=== PATIENT | male | born 1965 | race Caucasian/White ===

== ENCOUNTER → 2019-02-27 | Outpatient (CLI) | payer MEDICARE, MEDICAID ==
[2019-02-27 15:49] LABS: Basophils # (auto) 0 uL; Basophils % (auto) 0.7 % (0.0-2.0); Eosinophils # (auto) 0.1 uL; Hematocrit 43.4 % (41.0-53.0); Hemoglobin 14.1 g/dL (13.5-17.5); Lymphocytes # (auto) 1.7 uL; Lymphocytes % (auto) 32.8 % (10.0-50.0); Mean Corpuscular Hemoglobin 29.2 pg (28.0-32.0); Mean Corpuscular Hgb Conc. 32.5 g/dL (32.0-36.0); Mean Corpuscular Volume 89.7 fL (80.0-100.0); Monocytes # (auto) 0.6 uL; Monocytes % (auto) 11.8 % (0.0-12.0); Neutrophils # (auto) 2.8 uL; Neutrophils % (auto) 53.7 % (37.0-80.0); Nucleated Red Blood Cells % 0.5 %; Platelet Count (auto) 286 10^3/uL (140-450); Red Blood Cells 4.84 10^6/uL (4.5-5.90); Red Cell Distribution Width 13.4 % (11.8-14.3); White Blood Cell 5.1 10^3/uL (4.4-10.8)
[2019-02-27 16:00] LABS: Albumin 3.1 g/dL (3.4-5.0); Calcium 8.5 mg/dL (8.5-10.1); Potassium 4.3 mmol/L (3.5-5.1)
[2019-02-27 16:07] LABS: BUN/Creatinine Ratio 25.7; Bilirubin, Direct 0.1 mg/dL (0-0.2); Bilirubin, Total 0.5 mg/dL (0.2-1.0); Total Protein 6.6 g/dL (6.4-8.2)
[2019-02-28 09:31] LABS: Hepatitis B Surface Antibody Positive
[2019-02-28 10:04] LABS: Hepatitis A Total Antibody Negative
[2019-02-28 10:26] LABS: Hepatitis B Surface Antigen Negative (Negative); Hepatitis C Antibody Negative (Negative)
[2019-02-28 14:09] LABS: Hepatitis B Core Total AB Positive
== END | disposition home or self-care (01) ==
LOC: LAB 11:37
PROVIDERS: ATTEND Internal Medicine Cardiovascular Disease
DX: K74.1 Hepatic sclerosis (principal); B20 Human immunodeficiency virus [HIV] disease; E29.1 Testicular hypofunction; E03.9 Hypothyroidism, unspecified; Z79.899 Other long term (current) drug therapy; Z20.5 Contact with and (suspected) exposure to viral hepatitis; Z11.59 Encounter for screening for other viral diseases
CPT/HCPCS: 36415; 80048; 80061; 80076; 82306; 83036; 84153; 84403; 84443; 85025; 86592; 86703; 86704; 86706; 86708; 86803; 87340

== ENCOUNTER → 2019-03-05 | Outpatient (CLI) | payer MEDICARE, MEDICAID | END | disposition home or self-care (01) | LOC: Rad HDHVI 15:18 | PROVIDERS: ATTEND Internal Medicine Cardiovascular Disease | DX: I08.1 Rheumatic disorders of both mitral and tricuspid valves (principal); I27.21 Secondary pulmonary arterial hypertension | CPT/HCPCS: 93306 ==

== ENCOUNTER → 2019-04-29 | Outpatient (CLI) | payer MEDICARE, MEDICAID ==
[~2019-04-29] MED LIST: CARV6.25 PO; ENAL2.5T PO; LORA2TAB89 PO; ROSU5TAB5 PO; TOPI50TA32 PO
[2019-04-29 14:16] VITALS: BP 113/86
[2019-04-29 14:27] VITALS: BP 112/82
--- NOTE | 2019-04-29 14:27 | NUR ---
Pre-Op Discharge Summary: See e-MAR for any medications given for this visit. Pre-op orders received and carried out per MD of EKG, LABS and chest xrays. Patient given a copy of EKG with instructions to go to [facility] out patient for further follow up care.
[2019-04-29 16:02] LABS: Basophils # (auto) 0 uL; Basophils % (auto) 0.4 % (0.0-2.0); Eosinophils # (auto) 0.1 uL; Eosinophils % (auto) 1.7 % (0.0-7.0); Hematocrit 44.9 % (41.0-53.0); Hemoglobin 14.7 g/dL (13.5-17.5); Lymphocytes # (auto) 1.9 uL; Lymphocytes % (auto) 31.4 % (10.0-50.0); Mean Corpuscular Hemoglobin 29.5 pg (28.0-32.0); Mean Corpuscular Hgb Conc. 32.8 g/dL (32.0-36.0); Mean Corpuscular Volume 90.1 fL (80.0-100.0); Monocytes # (auto) 0.7 uL; Monocytes % (auto) 11.6 % (0.0-12.0); Neutrophils # (auto) 3.3 uL; Neutrophils % (auto) 54.9 % (37.0-80.0); Platelet Count (auto) 204 10^3/uL (140-450); Red Blood Cells 4.98 10^6/uL (4.5-5.90); Red Cell Distribution Width 14.5 % (11.8-14.3)
[2019-04-29 16:08] LABS: BUN/Creatinine Ratio 23.3; Calcium 8.8 mg/dL (8.5-10.1); Potassium 3.7 mmol/L (3.5-5.1)
[2019-04-29 16:17] LABS: INR 1.02 (0.9-1.15)
== END | disposition home or self-care (01) ==
LOC: Rad HDHVI 14:02
PROVIDERS: ATTEND Internal Medicine Cardiovascular Disease
DX: Z01.812 Encounter for preprocedural laboratory examination (principal); D64.9 Anemia, unspecified; R79.1 Abnormal coagulation profile; I11.0 Hypertensive heart disease with heart failure; I50.9 Heart failure, unspecified; I27.21 Secondary pulmonary arterial hypertension; I42.0 Dilated cardiomyopathy; R94.31 Abnormal electrocardiogram [ECG] [EKG]
CPT/HCPCS: 36415; 71046; 80048; 85025; 85610; 85730; 93005; G0463

== ENCOUNTER 2019-04-30 11:28 | Day surgery (SDC) | payer MEDICARE, MEDICAID ==
[~2019-04-30] VITALS: Ht 172.7 cm; Wt 75.7 kg
[2019-04-30] MEDS ORDERED: LIDOCAINE 2%HCL (LOCAL ANESTH.) INJ 20ML MDV ONE (12:02)
[2019-04-30] MEDS ORDERED: fentaNYL CITRATE 100 MCG/2 ML VL ONE (12:33)
[2019-04-30] MEDS ORDERED: ANGIOMAX 250 MG VIAL IV ONE (12:33)
[2019-04-30] MEDS ORDERED: MIDAZOLAM HCL 1MG/1ML-2 ML VIAL ONE (12:33)
[2019-04-30] MEDS ORDERED: SODIUM CHL 0.9% 0 ML ONE (12:34)
[2019-04-30] MEDS ORDERED: IODIXANOL 320MG/ML 100ML BTL IV ONE ×2 (12:34→14:25)
== END 2019-04-30 16:58 | disposition home or self-care (01) ==
LOC: CATH 11:28
PROVIDERS: ATTEND Internal Medicine Cardiovascular Disease
DX: I42.0 Dilated cardiomyopathy (principal); I27.29 Other secondary pulmonary hypertension; I11.0 Hypertensive heart disease with heart failure; I50.1 Left ventricular failure, unspecified; E78.00 Pure hypercholesterolemia, unspecified; F17.210 Nicotine dependence, cigarettes, uncomplicated; E78.5 Hyperlipidemia, unspecified; F12.90 Cannabis use, unspecified, uncomplicated; Z79.899 Other long term (current) drug therapy; Z88.5 Allergy status to narcotic agent; Z88.8 Allergy status to other drugs, medicaments and biological substances
CPT/HCPCS: 93460; C1760; C1894; J1644; J2250; J3010; J7030; Q9967; 99152

== ENCOUNTER 2023-08-23 07:12 | Day surgery (SDC) | payer MEDICARE, MEDICAID ==
[~2023-08-23 07:12] MED LIST changes: -ENAL2.5T PO; +FURO1TAB31 PO; +POTA1TAB61 PO; -ROSU5TAB5 PO; +SACU1TAB7 PO
[2023-08-23] MEDS ORDERED: IODIXANOL 320MG/ML 100ML BTL IV ONE (07:26)
[2023-08-23] MEDS ORDERED: LIDOCAINE 2%HCL (LOCAL ANESTH.) INJ 20ML MDV ONE (07:26)
[2023-08-23] MEDS ORDERED: VERAPAMIL 2.5MG/ML INJ 2ML VIAL IV ONE (07:57)
[2023-08-23] MEDS ORDERED: ANGIOMAX 250 MG VIAL IV ONE (07:57)
[2023-08-23] MEDS ORDERED: MIDAZOLAM HCL 2MG/2ML 2ml VIAL (1mg/ml) ONE (07:57)
[2023-08-23] MEDS ORDERED: SODIUM CHL 0.9% 0 ML ONE (07:57)
[2023-08-23] MEDS ORDERED: fentaNYL CITRATE 100 MCG/2 ML VL ONE (07:57)
[2023-08-23] MEDS ORDERED: HEPARIN SODIUM (PORCINE) 5000 UNITS/ML 1ML VIAL ONE (07:57)
[2023-08-23 08:43] VITALS: BP 116/82; PULSE 68; RESP 16; TEMP 98.2; O2SAT 95
[2023-08-23 08:57] VITALS: BP 112/83; PULSE 67; RESP 18; O2SAT 96
[2023-08-23] MEDS ORDERED: IVAB1TAB2 PO (09:07)
[2023-08-23] MEDS ORDERED: CAR125T PO (09:07)
[2023-08-23 09:13] VITALS: BP 117/85; PULSE 67; RESP 20; O2SAT 97
[2023-08-23] MEDS ORDERED: SILD20TA2 PO (09:13)
[2023-08-23] MEDS ORDERED: TOPI100T68 PO (09:13)
[2023-08-23] MEDS ORDERED: DIGO0.12 PO (09:13)
[2023-08-23] MEDS ORDERED: SACU1TAB PO (09:23)
[2023-08-23] MEDS ORDERED: FUR20T PO (09:23)
[2023-08-23] MEDS ORDERED: SOTA80TA PO (09:27)
[2023-08-23] MEDS ORDERED: FLUT1AER3 IN (09:27)
[2023-08-23] MEDS ORDERED: VERI2.5T PO (09:27)
[2023-08-23] MEDS ORDERED: ROSU10TA16 PO (09:27)
[2023-08-23 09:30] VITALS: BP 110/81; PULSE 68; RESP 17; O2SAT 96
[2023-08-23 09:59] VITALS: BP 112/73; PULSE 67; RESP 16; O2SAT 99
[2023-08-23 10:25] VITALS: BP 114/82; PULSE 67; RESP 17; O2SAT 97
== END 2023-08-23 10:55 | disposition home or self-care (01) ==
LOC: CATH 07:12
PROVIDERS: ATTEND Internal Medicine Cardiovascular Disease
DX: R06.02 Shortness of breath (principal); I11.0 Hypertensive heart disease with heart failure; I50.20 Unspecified systolic (congestive) heart failure; F17.210 Nicotine dependence, cigarettes, uncomplicated; I27.20 Pulmonary hypertension, unspecified; E78.5 Hyperlipidemia, unspecified; I73.9 Peripheral vascular disease, unspecified; Z79.899 Other long term (current) drug therapy; Z98.890 Other specified postprocedural states
CPT/HCPCS: 93458; C1725; C1894; J1644; J2250; J3010; J7030; Q9967; 99152

== ENCOUNTER 2025-03-24 16:12 | Emergency (ER) | payer MEDICARE, MEDICAID ==
[~2025-03-24] VITALS: Ht 172.7 cm; Wt 81.6 kg
[~2025-03-24 16:12] MED LIST changes: +CARV-216 PO; -CARV6.25 PO; +DIGO0.12 PO; +FLUT1AER3 IN; -FURO1TAB31 PO; +FURO20TA4 PO; +IVAB1TAB2 PO; -LORA2TAB89 PO; +POTA-215 PO; -POTA1TAB61 PO; +ROSU10TA16 PO; +SACU1TAB PO; -SACU1TAB7 PO; +SILD20TA41 PO; +SOTA80TA PO; +TOPI100T68 PO; -TOPI50TA32 PO; +VERI2.5T PO
[2025-03-24 16:33] VITALS: BP 80/48; PULSE 76; RESP 18; TEMP 99.1; O2SAT 95
--- NOTE | 2025-03-24 16:56 | ED.PDOC ---
History of Present Illness HPI Comments 60-year-old male came in because of his surgical wound site leaking fluid for the past few days. He had surgery done at [facility] for left inguinal hernia a week ago. Surgery was last Monday was discharged on Monday night. Patient states that he has been having fluid leaking from the surgical site increasing in size with more warm and redness. History of pacemaker with a ejection fraction of 16%. Denies chest pain shortness a breath. Denies any other symptoms. Time Seen by MD: 16:19 Reviewed Notes: Nurses Notes, Medications, Allergies Allergies: Coded Allergies: Codeine (Verified Allergy, Unknown, 08/21/23) Ethanol (Verified Allergy, Unknown, 08/21/23) Promethazine (Verified Allergy, Unknown, 08/21/23) Home Meds Reported Medications Vericiguat (Verquvo) 2.5 Mg Tab, 1 TAB PO DAILY for HEART FAILURE 08/23/23 Fkoarwktxrr-Jeadjpjxfkie-Inrun (Trelegy Ellipta 100-62.5-25 Mcg/INH) 1 Aer Aer, 1 PUFF IN DAILY for COPD 08/23/23 Rosuvastatin Calcium (Crestor) 10 Mg Tab, 1 TAB PO DAILY for HIGH CHOLESTEROL 08/23/23 Sotalol Hcl (Sotalol Hcl) 80 Mg Tab, 0.5 TAB PO BID for ARRYTHMIA 08/23/23 Furosemide (Furosemide) 20 Mg Tab, 1 TAB PO for HEART FAILURE 08/23/23 Sacubitril-Valsartan (Entresto 24-26 mg) 1 Tab Tab, 1 TAB PO BID for HEART FAILURE 08/23/23 Digoxin (Digoxin) 125 Mcg Tab, 1 TAB PO DAILY for ARRYTHMIA 08/23/23 Sildenafil Citrate (Sildenafil Citrate) 20 Mg Tab, 1 TAB PO TID for PULMONARY HYPERTENSION 08/23/23 Topiramate (Topiramate) 100 Mg Tab, 1 TAB PO QPM for SEIZURES 08/23/23 Ivabradine Hydrochloride (Corlanor) 7.5 Mg Tab, 1 TAB PO BID for HEART FAILURE 08/23/23 Carvedilol (COREG) 12.5 Mg Tab, 1 TAB PO BID for HYPERTENSION 08/23/23 Potassium Chloride (Klor-Con M10) 10 Meq Tab, 1 TAB PO DAILY for SUPPLEMENT 08/21/23 Information Source: Patient Mode of Arrival: Wheelchair Severity: Moderate Timing: Days Duration: Since onset Past Medical History PAST MEDICAL HISTORY: Denies Surgical History: Denies all surgeries Social History Smoker: Non-Smoker Alcohol: Denies ETOH Use Drugs: Denies Drug Use Constitutional: denies: chills, diaphoresis, fatigue, fever, malaise, sweats, weakness, others EENTM: denies: blurred vision, double vision, ear bleeding, ear discharge, ear drainage, ear pain, ear ringing, eye pain, eye redness, hearing loss, mouth pain, mouth swelling, nasal discharge, nose bleeding, nose congestion, nose pain, photophobia, tearing, throat pain, throat swelling, voice changes, others Respiratory: denies: cough, hemoptysis, orthopnea, SOB at rest, shortness of breath, SOB with excertion, stridor, wheezing, others Cardiovascular: denies: chest pain, dizzy spells, diaphoresis, Dyspnea on exertion, edema, irregular heart beat, left arm pain, lightheadedness, palpitations, PND, syncope, others Gastrointestinal: denies: abdomen distended, abdominal pain, blood streaked bowels, constipated, diarrhea, dysphagia, difficulty swallowing, hematemesis, melena, nausea, poor appetite, poor fluid intake, rectal bleeding, rectal pain, vomiting, others Genitourinary: denies: burning, dysuria, flank pain, frequency, hematuria, incontinence, penile discharge, penile sore, pain, testicle pain, testicle swelling, urgency, others Neurological: denies: dizziness, fainting, headache, left sided numbness, left sided weakness, numbness, paresthesia, pre-existing deficit, right sided numbness, right sided weakness, seizure, speech problems, tingling, tremors, weakness, others Musculoskeletal: denies: back pain, gout, joint pain, joint swelling, muscle pain, muscle stiffness, neck pain, others Integumetry: reports: lesions (Surgical left inguinal); denies: bruises, change in color, change in hair/nails, dryness, laceration, lumps, rash, wounds, others Allergic/Immunocompromised: denies: Difficulty Healing, Frequent Infections, Hives, Itching, others Hematologic/Lymphatic: denies: anemia, blood clots, easy bleeding, easy bruising, swollen glands, others Endocrine: denies: excessive hunger, excessive sweating, excessive thirst, excessive urination, flushing, intolerance to cold, intolerance to heat, unexplained weight gain, unexplained weight loss, others Psychiatric: denies: anxiety, bipolar disorder, depression, hopeless, panic disorder, schizophrenia, sleepless, suicidal, others Physical Exam General Appearance: Moderate Distress HEENT: Normal ENT Inspection, Pharynx Normal, TMs Normal Neck: Full Range of Motion, Non-Tender, Normal, Normal Inspection Respiratory: Chest Non-Tender, Lungs Clear, No Accessory Muscle Use, No Respiratory Distress, Normal Breath Sounds Cardiovascular: No Edema, No JVD, No Murmur, No Gallop, Normal Peripheral Pulses, Regular Rate/Rhythm Breast Exam: Deferred Gastrointestinal: No Organomegaly, Non Tender, No Pulsatile Mass, Normal Bowel Sounds, Soft Genitalia: Deferred Pelvic: Deferred Rectal: Deferred Extremities: No calf tenderness, Normal inspection, Normal range of motion, No pedal edema Musculoskeletal : Apperance: Normal Neurologic: Alert, No Motor Deficits, No Sensory Deficits Cerebellar Function: NOT DONE Reflexes: NOT DONE Skin: Normal Color, Wounds (Surgical left inguinal) Peripheral Pulses: 3+ Radial (R), 3+ Radial (L) Lymphatic: No Adenopathy Was a procedure done? Was a procedure done?: No Differential Dx Considerations may include: Cellulitis Electrolyte imbalance X-Ray, Labs, Meds, VS Patient alert. Complaining of leaking of serous fluid from surgical site. Had inguinal hernia repair at [facility]. Vitals stable. Answering questions. Blood pressure slightly low. Explained to the patient that he will need fluids along with antibiotics. He will need surgical site to be opened and drained possibly with wound VAC. Explained to the patient. Insists on driving himself to [facility]. Signed against medical advice. Explained to the significant other that the dangers of him not being treated could be fatal. They insisted on driving to [facility]. Time of 1ST Reevaluation: 16:53 Reevaluation 1ST: Unchanged Patient Education/Counseling: Diagnosis, Treatment, Prognosis, Need For Follow Up Family Education/Counseling: No Family Present Departure 1 Departure Time of Disposition: 16:55 Impression: Primary Impression: Cellulitis Qualified Codes: L03.818 - Cellulitis of other sites Disposition: LEFT AGAINST MEDICAL ADVICE Condition: Good Discharged With: Self Critical Care Note Critical Care Time?: No Stability Stability form required: No Heart Score Heart Score: Heart Score Response (Comments) Value History N/A 0 EKG N/A 0 Age N/A 0 Risk Factors N/A 0 Troponin N/A 0 Total 0 RITA SANDOVAL MD Mar 24, 2025 16:55
== END 2025-03-24 17:15 | disposition left against medical advice (07) ==
LOC: ER 16:12
DX: L03.314 Cellulitis of groin (principal); Z95.0 Presence of cardiac pacemaker; Z88.5 Allergy status to narcotic agent; Z79.899 Other long term (current) drug therapy; Z88.1 Allergy status to other antibiotic agents

== ENCOUNTER 2025-06-07 08:23 | Inpatient (IN) | payer MEDICARE, MEDICAID ==
[~2025-06-07] VITALS: Ht 172.7 cm; Wt 86.1 kg
[2025-06-07 08:29] VITALS: PULSE 67; RESP 11; O2SAT 92
--- NOTE | 2025-06-07 08:48 | ED.PDOC ---
History of Present Illness HPI Comments 60-year-old male presents to the ER with prior medical history of CHF, AFib: Surgical history of pacemaker and a chief complaint of chest pain. Patient reports on having chest pain(unknown location), nausea, dizziness, weakness all since this morning and has been worsening since. Denies chills, fever, /V/D, SOB. No other associated symptoms, modifiers, recent injuries or sick contacts present at this time. Chief Complaint: Chest Pain Time Seen by MD: 08:45 Primary Care Provider: ASHLEY CARPENTER Reviewed Notes: Nurses Notes, Medications, Allergies Allergies: Coded Allergies: Codeine (Verified Allergy, Unknown, 08/21/23) Ethanol (Verified Allergy, Unknown, 08/21/23) Promethazine (Verified Allergy, Unknown, 08/21/23) Home Meds Reported Medications Vericiguat (Verquvo) 2.5 Mg Tab, 1 TAB PO DAILY for HEART FAILURE 08/23/23 Rkndkkzestv-Qfhxqbnmrtjo-Natpo (Trelegy Ellipta 100-62.5-25 Mcg/INH) 1 Aer Aer, 1 PUFF IN DAILY for COPD 08/23/23 Rosuvastatin Calcium (Crestor) 10 Mg Tab, 1 TAB PO DAILY for HIGH CHOLESTEROL 08/23/23 Sotalol Hcl (Sotalol Hcl) 80 Mg Tab, 0.5 TAB PO BID for ARRYTHMIA 08/23/23 Furosemide (Furosemide) 20 Mg Tab, 1 TAB PO for HEART FAILURE 08/23/23 Sacubitril-Valsartan (Entresto 24-26 mg) 1 Tab Tab, 1 TAB PO BID for HEART FAILURE 08/23/23 Digoxin (Digoxin) 125 Mcg Tab, 1 TAB PO DAILY for ARRYTHMIA 08/23/23 Sildenafil Citrate (Sildenafil Citrate) 20 Mg Tab, 1 TAB PO TID for PULMONARY HYPERTENSION 08/23/23 Topiramate (Topiramate) 100 Mg Tab, 1 TAB PO QPM for SEIZURES 08/23/23 Ivabradine Hydrochloride (Corlanor) 7.5 Mg Tab, 1 TAB PO BID for HEART FAILURE 08/23/23 Carvedilol (COREG) 12.5 Mg Tab, 1 TAB PO BID for HYPERTENSION 08/23/23 Potassium Chloride (Klor-Con M10) 10 Meq Tab, 1 TAB PO DAILY for SUPPLEMENT 11/20/23 Information Source: Patient Mode of Arrival: Ambulatory Severity: Moderate Timing: Hours Duration: Since onset, Hours Prehospital treatment: None Past Medical History PAST MEDICAL HISTORY: AFIB, CHF Surgical History: Pacemaker Family History Family History: Reviewed,noncontributory to illness, Unknown Social History Smoker: Non-Smoker Alcohol: Denies ETOH Use Drugs: Denies Drug Use Lives In: Home Constitutional: reports: weakness; denies: chills, diaphoresis, fatigue, fever, malaise, sweats, others EENTM: denies: blurred vision, double vision, ear bleeding, ear discharge, ear drainage, ear pain, ear ringing, eye pain, eye redness, hearing loss, mouth pain, mouth swelling, nasal discharge, nose bleeding, nose congestion, nose pain, photophobia, tearing, throat pain, throat swelling, voice changes, others Respiratory: denies: cough, hemoptysis, orthopnea, SOB at rest, shortness of breath, SOB with excertion, stridor, wheezing, others Cardiovascular: reports: chest pain; denies: dizzy spells, diaphoresis, Dyspnea on exertion, edema, irregular heart beat, left arm pain, lightheadedness, palpitations, PND, syncope, others Gastrointestinal: reports: nausea; denies: abdomen distended, abdominal pain, blood streaked bowels, constipated, diarrhea, dysphagia, difficulty swallowing, hematemesis, melena, poor appetite, poor fluid intake, rectal bleeding, rectal pain, vomiting, others Genitourinary: denies: burning, dysuria, flank pain, frequency, hematuria, incontinence, penile discharge, penile sore, pain, testicle pain, testicle swelling, urgency, others Neurological: reports: dizziness; denies: fainting, headache, left sided numbness, left sided weakness, numbness, paresthesia, pre-existing deficit, right sided numbness, right sided weakness, seizure, speech problems, tingling, tremors, weakness, others Musculoskeletal: denies: back pain, gout, joint pain, joint swelling, muscle pain, muscle stiffness, neck pain, others Integumetry: denies: bruises, change in color, change in hair/nails, dryness, laceration, lesions, lumps, rash, wounds, others Allergic/Immunocompromised: denies: Difficulty Healing, Frequent Infections, Hives, Itching, others Hematologic/Lymphatic: denies: anemia, blood clots, easy bleeding, easy bruisi ng, swollen glands, others Endocrine: denies: excessive hunger, excessive sweating, excessive thirst, exce ssive urination, flushing, intolerance to cold, intolerance to heat, unexplained weight gain, unexplained weight loss, others Psychiatric: denies: anxiety, bipolar disorder, depression, hopeless, panic disorder, schizophrenia, sleepless, suicidal, others All Other Systems: Reviewed and Negative Physical Exam General Appearance: Moderate Distress, Normal HEENT: Normal ENT Inspection, Pharynx Normal, TMs Normal Neck: Full Range of Motion, Non-Tender, Normal, Normal Inspection Respiratory: Chest Non-Tender, Lungs Clear, No Accessory Muscle Use, No Respiratory Distress, Normal Breath Sounds Cardiovascular: Irregular, No Edema, No JVD, No Murmur, No Gallop, Normal Peripheral Pulses, Tachycardia Breast Exam: Deferred Gastrointestinal: No Organomegaly, Non Tender, No Pulsatile Mass, Normal Bowel Sounds, Soft Genitalia: Deferred Pelvic: Deferred Rectal: Deferred Extremities: No calf tenderness, Normal capillary refill, Normal inspection, Normal range of motion, Non-tender, No pedal edema Musculoskeletal : Apperance: Normal Neurologic: Alert, district medical examiner II-XII nml as Tested, No Motor Deficits, Normal Affect, Normal Mood, No Sensory Deficits Cerebellar Function: NOT DONE Reflexes: NOT DONE Skin: Dry, Normal Color, Warm Peripheral Pulses: 3+ Radial (R), 3+ Radial (L) Lymphatic: No Adenopathy Was a procedure done? Was a procedure done?: No Differential Dx Considerations may include: Anemia Electrolyte imbalance X-Ray, Labs, Meds, VS Vital Signs Date Time Temp Pulse Resp B/P (MAP) Pulse Ox O2 Delivery O2 Flow Rate FiO2 06/07/25 10:49 63/39 06/07/25 08:44 97.0 114 20 54/32 100 97.0 06/07/25 08:29 98.0 66 11 96/51 (66) 92 98.0 06/07/25 08:29 67 11 92 Nasal Cannula* 2 28 06/07/25 08:28 132 Lab Test 06/07/25 11:14 06/07/25 08:49 Range/Units Troponin I High Sensitivity 581 *H 546 *H </=54 ng/L White Blood Count 11.6 H 4.4-10.8 10^3/uL Red Blood Count 5.39 4.5-5.90 10^6/uL Hemoglobin 16.3 13.5-17.5 g/dL Hematocrit 49.0 41.0-53.0 % Mean Corpuscular Volume 90.9 80.0-100.0 fL Mean Corpuscular Hemoglobin 30.3 28.0-32.0 pg Mean Corpuscular Hemoglobin Concent 33.3 32.0-36.0 g/dL Red Cell Distribution Width 16.9 H 11.8-14.3 % Platelet Count 282 140-450 10^3/uL Mean Platelet Volume 6.8 L 6.9-10.8 fL Neutrophils (%) (Auto) 69.2 37.0-80.0 % Lymphocytes (%) (Auto) 19.3 10.0-50.0 % Monocytes (%) (Auto) 10.1 0.0-12.0 % Eosinophils (%) (Auto) 1.0 0.0-7.0 % Basophils (%) (Auto) 0.4 0.0-2.0 % Neutrophils # (Auto) 8.0 1.6-8.6 10 ^3/uL Lymphocytes # (Auto) 2.2 0.4-5.4 10 ^3/uL Monocytes # (Auto) 1.2 0-1.3 10 ^3/uL Eosinophils # (Auto) 0.1 0-0.8 10 ^3/uL Basophils # (Auto) 0 0-0.2 10 ^3/uL Nucleated Red Blood Cells 0.0 % Sodium Level 136 136-145 mmol/L Potassium Level 3.2 L 3.5-5.1 mmol/L Chloride Level 98 98-107 mmol/L Carbon Dioxide Level 22 20-31 mmol/L Anion Gap 16 H 5-15 Blood Urea Nitrogen 22 9-23 mg/dL Creatinine 2.58 H 0.700-1.30 mg/dL Glomerular Filtration Rate Calc 27 >90 mL/min BUN/Creatinine Ratio 8.5 L 10.0-20.0 Serum Glucose 101 74-106 mg/dL Calcium Level 9.5 8.7-10.4 mg/dL Total Bilirubin 0.9 0.2-1.0 mg/dL Aspartate Amino Transferase (AST) 26 13-40 U/L Alanine Aminotransferase (ALT) 20 7-40 U/L Alkaline Phosphatase 73 46-116 U/L Total Protein 8.0 5.7-8.2 g/dL Albumin 4.4 3.2-4.8 g/dL Current Medications Medications (Trade) Dose Ordered Sig/Yoni Route Start Time Stop Time Status Last Admin Sodium Chloride 1,000 ml @ 1,000 mls/hr Q1H ONCE IV 06/07/25 08:45 06/07/25 09:44 DC 06/07/25 08:56 Norepinephrine Bitartrate 250 ml @ 3.75 mls/hr Q24H IV 06/07/25 10:15 06/07/25 10:49 Enoxaparin Sodium (Lovenox) 80 mg ONCE ONCE SC 06/07/25 10:15 06/07/25 10:21 DC 06/07/25 10:51 Ondansetron HCl (Zofran) 4 mg ONCE ONCE IV 06/07/25 11:15 06/07/25 12:46 DC 06/07/25 11:30 Acetaminophen/ Hydrocodone Bitart (Clarkia 10/325MG Tab) 1 tab ONCE ONCE PO 06/07/25 12:15 06/07/25 12:46 DC 06/07/25 12:21 Patient alert. Complaining of shortness a breath. He was hyperventilating when he came in. Heart rate fluctuating. Irregular pain Blood pressure low. Establish intravenous access. Was given fluids. Started Levophed. Cardiac marker elevated. Was given Lovenox. Demand ischemia. EKG does show old changes. Counseled patient on effects of methamphetamine. Drug induced ischemia. Explained to the patient. Continue monitoring. [place] [id number] Ph: [phone] DIAGNOSTIC IMAGING Diagnostic Imaging Report : [id number] Signed PATIENT: MONIQUE COPE ACCT: [id number] UNIT: [id number] : 1965 LOC: ER ROOM / BED: / AGE / SEX: 60 / M ADM STATUS: REG ER SERVICE [id number] ORDERING PHYSICIAN: RITA SANDOVAL MD PROCEDURE(s): CXRP - CHEST PORTABLE REASON: sob ORDER NUMBER(s): [id number], ACCESSION NUMBER(s): [id number] CHEST PORTABLE, HISTORY: sob COMPARISON: XR CHEST 1 VIEW on DOS: 11/05/23 XR CHEST 1 VIEW on DOS: 11/05/23 TECHNICAL DATA: 1 view of the chest was obtained. FINDINGS: Lines and tubes: A pacer is noted. Cardiomediastinal silhouette: Enlarged Pulmonary vasculature: Prominent Lung expansion: normal Lung airspace: normal Lung interstitium: normal Pleura: normal Pneumothorax: no Bones: Unremarkable Other: no IMPRESSION: Cardiomegaly with pulmonary vascular congestion. ATED BY: MANINDER LUCIO MD DICTATED DATE/TIME: 06/07/25910 SIGNED BY: MANINDER LUCIO MD SIGNED DATE/TIME: 06/07/25910 CC: Time of 1ST Reevaluation: 09:15 Reevaluation 1ST: Unchanged Patient Education/Counseling: Diagnosis, Treatment, Prognosis Family Education/Counseling: No Family Present SEPSIS Sepsis Screen Physician Orders Electrocardigram (06/07/25 09:31) Electrocardigram (06/07/25 11:31) Chest Portable (06/07/25 08:35) Urinalysis (06/07/25 08:35) Troponin-I Hs (06/07/25 11:35) Drug Screen (06/07/25 08:55) Norepinephrine 8 Mg/250ml Kit (Levophed) (06/07/25 10:15) Vital Signs Date Time Temp Pulse Resp B/P (MAP) Pulse Ox O2 Delivery O2 Flow Rate FiO2 06/07/25 10:49 63/39 06/07/25 08:44 97.0 114 20 54/32 100 97.0 06/07/25 08:29 98.0 66 11 96/51 (66) 92 98.0 06/07/25 08:29 67 11 92 Nasal Cannula* 2 28 06/07/25 08:28 132 Laboratory Tests Test 06/07/25 08:49 White Blood Count 11.6 10^3/uL (4.4-10.8) H Medications Medications Dose Ordered Sig/Yoni Route Start Time Stop Time Status Last Admin Dose Admin Acetaminophen/ Hydrocodone Bitart 1 tab ONCE ONCE PO 06/07/25 12:15 06/07/25 12:46 DC 06/07/25 12:21 Enoxaparin Sodium 80 mg ONCE ONCE SC 06/07/25 10:15 06/07/25 10:21 DC 06/07/25 10:51 Norepinephrine Bitartrate 250 ml @ 3.75 mls/hr Q24H IV 06/07/25 10:15 06/07/25 10:49 Ondansetron HCl 4 mg ONCE ONCE IV 06/07/25 11:15 06/07/25 12:46 DC 06/07/25 11:30 Sodium Chloride 1,000 ml @ 1,000 mls/hr Q1H ONCE IV 06/07/25 08:45 06/07/25 09:44 DC 06/07/25 08:56 Departure 1 Departure Time of Disposition: 10:55 Impression: Primary Impression: Hypotension Qualified Codes: I95.9 - Hypotension, unspecified Additional Impression: NSTEMI (non-ST elevated myocardial infarction) Disposition: ADMITTED INPATIENT Admit to: ICU Condition: Guarded Critical Care Note Critical Care Time?: Yes (90 min-critical care time only) Stability Stability form required: No Heart Score Heart Score: Heart Score Response (Comments) Value History Slightly Suspicious 0 EKG Normal 0 Age 45-64 1 Risk Factors >3 or Hx ASHD 2 Troponin >3 x's Normal limit 2 Total 5 I personally scribed for RITA SANDOVAL MD ([email or web address]) on 06/07/25 at 08:48. Electronically submitted by Selvin John ([email or web address]). I personally scribed for RITA SANDOVAL MD ([email or web address]) on 06/07/25 at 13:21. Electronically submitted by Logan Eaton [email or web address]). RITA SANDOVAL MD Jun 07, 2025 08:48
[2025-06-07] MEDS: SODIUM CHLORIDE 0.9% 1,000 ML IV ONE (08:56)
[2025-06-07 09:04] LABS: Hematocrit 49.0 % (41.0-53.0); Hemoglobin 16.3 g/dL (13.5-17.5); Mean Corpuscular Hemoglobin 30.3 pg (28.0-32.0); Mean Corpuscular Volume 90.9 fL (80.0-100.0); Nucleated Red Blood Cells % 0.0 %
--- NOTE | 2025-06-07 09:13 | DVH ---
XY CHEST PORTABLE, HISTORY: sob COMPARISON: XR CHEST 1 VIEW on DOS: 11/05/23 XR CHEST 1 VIEW on DOS: 11/05/23 TECHNICAL DATA: 1 view of the chest was obtained. FINDINGS: Lines and tubes: A pacer is noted. Cardiomediastinal silhouette: Enlarged Pulmonary vasculature: Prominent Lung expansion: normal Lung airspace: normal Lung interstitium: normal Pleura: normal Pneumothorax: no Bones: Unremarkable Other: no IMPRESSION: Cardiomegaly with pulmonary vascular congestion.
[2025-06-07 09:18] LABS: Alanine Aminotransferase 20 U/L (7-40); Albumin 4.4 g/dL (3.2-4.8); Alkaline Phosphatase 73 U/L (46-116); Anion Gap 16 (5-15); BUN/Creatinine Ratio 8.5 (10.0-20.0); Bilirubin, Total 0.9 mg/dL (0.2-1.0); Blood Urea Nitrogen 22 mg/dL (9-23); Calcium 9.5 mg/dL (8.7-10.4); Carbon Dioxide 22 mmol/L (20-31); Glucose 101 mg/dL (74-106); Total Protein 8.0 g/dL (5.7-8.2)
[2025-06-07 09:23] LABS: Chloride 98 mmol/L (98-107); Potassium 3.2 mmol/L (3.5-5.1); Sodium 136 mmol/L (136-145)
--- NOTE | 2025-06-07 09:45 | ECG ---
[facility] Test Date: 2025-06-07 Test Time: 08:28:02 Pat Name: MONIQUE COPE Department: ED Room: [address] [place] [address] Gender: M Community Health Planning Director: carlos : 1965 Requested By: RITA SANDOVAL Order Number: [id number] Reading MD: Nickolas Castaneda Measurements Intervals [place] Rate: 132 P: 0 CT: 132 QRS: 117 QRSD: 171 T: 253 QT: 384 QTc: 569 Interpretive Statements Sinus tachycardia with irregular rate IVCD, consider atypical LBBB Baseline wander in lead(s) V2 Electronically Signed On 06-09-2025 14:22:42 PDT by Nickolas Castaneda Please click the below link to view image of tracing.
[2025-06-07] MEDS: NOREPINEPHRINE 8 MG/250ML KIT 250 ML IV SCH (10:49)
[2025-06-07] MEDS: ENOXAPARIN SOD 100 MG/1 ML SYRINGE SC ONE (10:51)
[2025-06-07] MEDS: ONDANSETRON HCL 4 MG/2 ML VIAL IV ONE (11:30)
[2025-06-07] MEDS: HYDROcodone-ACET 10/325MG TAB PO ONE ×2 (12:21→17:19)
[2025-06-07] MEDS ORDERED: NITROGLYCERIN 0.4 MG SL TAB SL PRN (17:00)
--- NOTE | 2025-06-07 17:40 | DVHHP2 ---
History of Present Illness Reason for Visit: Generalized weakness History of Present Illness 60-year-old male presents to the ER with prior medical history of CHF, AFib: Surgical history of pacemaker and a chief complaint of chest pain. Patient reports on having chest pain(unknown location), nausea, dizziness, weakness all since this morning and has been worsening since. Denies chills, fever, /V/D, SOB. No other associated symptoms, modifiers, recent injuries or sick contacts present at this time. Cardiovascular: AFIB, CHF Past Surgical History AICD Smoke: <1 pack per day ALCOHOL: none Drugs: Other (Meth use) Lives: Friends Domestic Violence: Neg Review of Systems Constitutional: Yes: Weakness Gastrointestinal: Nausea Allergies: Coded Allergies: Codeine (Verified Allergy, Unknown, 08/21/23) Ethanol (Verified Allergy, Unknown, 08/21/23) Promethazine (Verified Allergy, Unknown, 08/21/23) Medications Current Medications Medications Dose Ordered Sig/Yoni Route Start Time Stop Time Status Last Admin Dose Admin Norepinephrine Bitartrate 250 ml @ 3.75 mls/hr Q24H IV 06/07/25 10:15 06/07/25 10:49 3.75 MLS/HR Acetaminophen 650 mg Q6HP PRN PO 06/07/25 17:00 Nitroglycerin 0.4 mg Q5MINP PRN SL 06/07/25 17:00 Morphine Sulfate 2 mg Q30M PRN IV 06/07/25 17:00 Exam Vital Signs Vital Signs Date Time Temp Pulse Resp B/P (MAP) Pulse Ox O2 Delivery O2 Flow Rate FiO2 06/07/25 16:00 76 06/07/25 16:00 100/62 06/07/25 08:44 97.0 20 100 97.0 06/07/25 08:29 Nasal Cannula* 2 28 General Appearance: Alert, Cooperative, No acute distress HEENT: Atraumatic, PERRLA, Mucous membr. moist/pink Respiratory: Clear to auscultation, Normal air movement Cardiovascular: Regular rate, Normal S1, Normal S2, No murmurs, Other (Paced beats) Abdominal: Normal bowel sounds, Soft, No tenderness, No hepatospenomegaly, No masses Extremities: No clubbing, No cyanosis, No edema, Normal pulses, No tenderness/swelling Skin: No rashes, No breakdown Neuro: Normal gait, Normal speech, Strength at 5/5 X4 ext, Normal tone, Sensation intact, Cranial nerves 3-12 NL, Reflexes 2+ Psych/Mental Status: Mental status NL Labs/Xrays Labs Test 06/07/25 13:54 06/07/25 08:49 Range/Units Troponin I High Sensitivity 608 *H </=54 ng/L White Blood Count 11.6 H 4.4-10.8 10^3/uL Red Blood Count 5.39 4.5-5.90 10^6/uL Hemoglobin 16.3 13.5-17.5 g/dL Hematocrit 49.0 41.0-53.0 % Mean Corpuscular Volume 90.9 80.0-100.0 fL Mean Corpuscular Hemoglobin 30.3 28.0-32.0 pg Mean Corpuscular Hemoglobin Concent 33.3 32.0-36.0 g/dL Red Cell Distribution Width 16.9 H 11.8-14.3 % Platelet Count 282 140-450 10^3/uL Mean Platelet Volume 6.8 L 6.9-10.8 fL Neutrophils (%) (Auto) 69.2 37.0-80.0 % Lymphocytes (%) (Auto) 19.3 10.0-50.0 % Monocytes (%) (Auto) 10.1 0.0-12.0 % Eosinophils (%) (Auto) 1.0 0.0-7.0 % Basophils (%) (Auto) 0.4 0.0-2.0 % Neutrophils # (Auto) 8.0 1.6-8.6 10 ^3/uL Lymphocytes # (Auto) 2.2 0.4-5.4 10 ^3/uL Monocytes # (Auto) 1.2 0-1.3 10 ^3/uL Eosinophils # (Auto) 0.1 0-0.8 10 ^3/uL Basophils # (Auto) 0 0-0.2 10 ^3/uL Nucleated Red Blood Cells 0.0 % Sodium Level 136 136-145 mmol/L Potassium Level 3.2 L 3.5-5.1 mmol/L Chloride Level 98 98-107 mmol/L Carbon Dioxide Level 22 20-31 mmol/L Anion Gap 16 H 5-15 Blood Urea Nitrogen 22 9-23 mg/dL Creatinine 2.58 H 0.700-1.30 mg/dL Glomerular Filtration Rate Calc 27 >90 mL/min BUN/Creatinine Ratio 8.5 L 10.0-20.0 Serum Glucose 101 74-106 mg/dL Calcium Level 9.5 8.7-10.4 mg/dL Total Bilirubin 0.9 0.2-1.0 mg/dL Aspartate Amino Transferase (AST) 26 13-40 U/L Alanine Aminotransferase (ALT) 20 7-40 U/L Alkaline Phosphatase 73 46-116 U/L Total Protein 8.0 5.7-8.2 g/dL Albumin 4.4 3.2-4.8 g/dL ORDERING PHYSICIAN: RITA SANDOVAL MD PROCEDURE(s): CXRP - CHEST PORTABLE REASON: sob ORDER NUMBER(s): [id number], ACCESSION NUMBER(s): [id number] CHEST PORTABLE, HISTORY: sob COMPARISON: XR CHEST 1 VIEW on DOS: 11/05/23 XR CHEST 1 VIEW on DOS: 11/05/23 TECHNICAL DATA: 1 view of the chest was obtained. FINDINGS: Lines and tubes: A pacer is noted. Cardiomediastinal silhouette: Enlarged Pulmonary vasculature: Prominent Lung expansion: normal Lung airspace: normal Lung interstitium: normal Pleura: normal Pneumothorax: no Bones: Unremarkable Other: no IMPRESSION: Cardiomegaly with pulmonary vascular congestion. ATED BY: MANINDER LUCIO MD DICTATED DATE/TIME: 06/07/25910 SIGNED BY: MANINDER LUCIO MD SIGNED DATE/TIME: 06/07/25910 CC: SEPSIS Sepsis Screen Date sepsis recognized/suspect: Jun 07, 2025 Time Sepsis recognized/suspect: 829 Recent Procedure: No On Antibiotic Therapy: No Respiratory Rate >20: Yes Heart Rate >90: Yes Temp<36 C (96.8 F) or >38.3 C: No SBP <90 or MAP <65 mmHG: Yes New Acute Mental Status Change: No Is the patient on CPAP, BIPAP,: No Physician Orders Norepinephrine 8 Mg/250ml Kit (Levophed) (06/07/25 10:15) Admit (06/07/25 16:53) Renal Standard(2gna,3gk,Lopho) (06/07/25 Dinner) Complete Blood Count (06/08/25 04:00) Comprehensive Metabolic Panel (06/08/25 04:00) Echo 2d Mode Cardiac Dop (06/07/25 16:53) Condition: Serious (06/07/25 16:53) Acetaminophen Tablet (Tylenol Tablet) (06/07/25 17:00) Bedrest With Bathroom Privileg (06/07/25 16:53) Nitroglycerin Sublingual (Ntrostat Subli (06/07/25 17:00) Morphine Sulfate Injection (06/07/25 17:00) Stat Ekg For Chest Pain (06/07/25 16:53) Notify Md Of Changes From Base (06/07/25 16:53) Hostel Manager For 24 Hours (06/07/25 16:53) Emergency Dysrhythmia Protocol (06/07/25:53) Rhythm Strips Once Every Shift (06/07/25 16:53) Oxygen By Nasal Cannula (06/07/25 16:53) Covid19 Antigen Veronica (06/07/25 ) Carvedilol Tablet (Coreg Tablet) (06/07/25 22:00) Digoxin Tablet (Lanoxin Tablet) (06/08/25 10:00) Furosemide Tablet (Lasix Tablet) (06/08/25 10:00) Sacubitril-Valsartan (Entresto 24-26 Mg (06/07/25 22:00) Sildenafil Citrate (Revatio) (06/07/25 22:00) Sotalol Hcl (Betapace) (06/07/25 22:00) Topiramate (Topamax) (06/07/25 18:00) (Nf) Ivabradine Hydrochloride (Corlanor) (06/07/25 22:00) (Nf) Potassium Chloride (Klor-Con M10) (06/08/25 10:00) (Nf) Rosuvastatin Calcium (Crestor) (06/08/25 10:00) (Nf) Vericiguat (Verquvo) (06/08/25 10:00) Urine Sodium (06/07/25 17:31) Urine Protein (06/07/25 17:31) Urine Creatinine (06/07/25 17:31) Magnesium (06/07/25 17:32) Vital Signs Date Time Temp Pulse Resp B/P (MAP) Pulse Ox O2 Delivery O2 Flow Rate FiO2 06/07/25 16:00 76 06/07/25 16:00 100/62 06/07/25 15:00 104/67 06/07/25 14:00 106/64 06/07/25 13:00 95/59 06/07/25 12:00 95/61 06/07/25 11:30 89/56 06/07/25 11:21 78/53 06/07/25 11:15 73/37 06/07/25 11:00 64/40 06/07/25 10:49 63/39 Laboratory Tests Test 06/07/25 08:49 White Blood Count 11.6 10^3/uL (4.4-10.8) H Medications Medications Dose Ordered Sig/Yoni Route Start Time Stop Time Status Last Admin Dose Admin Acetaminophen/ Hydrocodone Bitart 1 tab ONCE ONCE PO 06/07/25 12:15 06/07/25 12:46 DC 06/07/25 12:21 1 TAB Acetaminophen/ Hydrocodone Bitart 1 tab ONCE ONCE PO 06/07/25 16:45 06/07/25 16:46 DC 06/07/25 17:19 1 TAB Enoxaparin Sodium 80 mg ONCE ONCE SC 06/07/25 10:15 06/07/25 10:21 DC 06/07/25 10:51 80 MG Norepinephrine Bitartrate 250 ml @ 3.75 mls/hr Q24H IV 06/07/25 10:15 06/07/25 10:49 3.75 MLS/HR Ondansetron HCl 4 mg ONCE ONCE IV 06/07/25 11:15 06/07/25 12:46 DC 06/07/25 11:30 4 MG Sodium Chloride 1,000 ml @ 1,000 mls/hr Q1H ONCE IV 06/07/25 08:45 06/07/25 09:44 DC 06/07/25 08:56 1,000 MLS/HR Reassessment Post Fluid Pulse Location: Radial Pulse Strength: Normal Capillary Refill Exam: < 3 seconds Skin Temperature: Warm Skin Moisture: Dry Skin Tugor: WNL Skin Color: WNL Fingernail Color: WNL Assessment/Plan Assessment/Plan Generalized weakness---patient presents to ED with chief complaint of genera lized weakness associated with nausea and dizziness that started early this morning History of meth use, CHF, AFib and AICD Currently on Levophed drip 6 mcg per minute Admit to ICU for continuous monitoring Reviewed CBC which is normal Reviewed BMP which shows potassium 3.2 and creatinine elevated Cardiac enzyme is elevated x3 Reviewed 12 lead EKG IV Levophed drip IV gentle hydration Echocardiogram pending Consult handkerchief sample clerk Dr. Joe for evaluation and recommendation Hypokalemia 3.2 Order potassium replacement At on Mag level pending Continue to monitor labs and replace as needed SATHISH likely due to cardiorenal syndrome Avoid nephrotoxic agent Urine sodium/creatinine and protein pending Consult machine grinder Dr. Nguyen for evaluation and recommendation Reconcile home med Continue heart failure medication DVT prophylaxis PUD prophylaxis not indicated no history of GERD Labs in a.m. Discussed plan of care with the patient in which all questions concerns have been addressed Plan discussed with: Patient My Orders Orders - MADONNA RICHTER Procedure Category Date Status Time Admit ADMIT 06/07/25 Transmitted 16:53 Renal DIET 06/07/25 Transmitted Standard(2gna,3gk,Lopho) Dinner Complete Blood Count LAB 06/08/25 Verified 04:00 Comprehensive LAB 06/08/25 Verified Metabolic Panel 04:00 Echo 2d Mode Cardiac US 06/07/25 Logged DOP 16:53 Condition: Serious [facility] 06/07/25 In Process 16:53 Acetaminophen Tablet [facility] 06/07/25 In Process (Tylenol Tablet) 17:00 Bedrest With Bathroom [facility] 06/07/25 In Process Privileg 16:53 Nitroglycerin [facility] 06/07/25 In Process Sublingual (Ntrostat 17:00 Morphine Sulfate [facility] 06/07/25 In Process Injection 17:00 Stat Ekg For Chest [facility] 06/07/25 In Process Pain 16:53 Notify Md Of Changes [facility] 06/07/25 In Process From Base 16:53 Hostel Manager For [facility] 06/07/25 In Process 24 Hours 16:53 Emergency Dysrhythmia [facility] 06/07/25 In Process Protocol 16:53 Rhythm Strips Once [facility] 06/07/25 In Process Every Shift 16:53 Oxygen By Nasal RT 06/07/25 Transmitted Cannula 16:53 Covid19 Antigen Veronica LAB 06/07/25 Logged Carvedilol Tablet PHA 06/07/25 Logged (Coreg Tablet) 22:00 Digoxin Tablet PHA 06/08/25 Logged (Lanoxin Tablet) 10:00 Furosemide Tablet PHA 06/08/25 Logged (Lasix Tablet) 10:00 Sacubitril-Valsartan PHA 06/07/25 Logged (Entresto 24-26 Mg 22:00 Sildenafil Citrate PHA 06/07/25 Logged (Revatio) 22:00 Sotalol Hcl (Betapace) PHA 06/07/25 Logged 22:00 Topiramate (Topamax) PHA 06/07/25 Logged 18:00 (Nf) Ivabradine PHA 06/07/25 Logged Hydrochloride 22:00 (Nf) Potassium PHA 06/08/25 Logged Chloride (Klor-Con 10:00 (Nf) Rosuvastatin PHA 06/08/25 Logged Calcium (Crestor) 10:00 (Nf) Vericiguat PHA 06/08/25 Logged (Verquvo) 10:00 Urine Sodium LAB 06/07/25 Logged 17:31 Urine Protein LAB 06/07/25 Logged 17:31 Urine Creatinine LAB 06/07/25 Logged 17:31 Magnesium LAB 06/07/25 Verified 17:32 Date of Service: Jun 07, 2025 Billing Provider: MADONNA RICHTER Common Visit Codes: [id number] INP/OBS CARE (HIGH), [id number] CARE 30- 74 MIN MADONNA RICHTER Jun 07, 2025 17:40
[2025-06-07] MEDS: SOTALOL HCL 80 MG TAB PO SCH (18:00)
[2025-06-07] MEDS: TOPIRAMATE 100 MG TAB PO SCH (18:29)
[2025-06-07] MEDS: MORPHINE SULFATE INJ 2 MG/ml SYRG IV PRN (20:12)
[2025-06-07 20:17] LABS: COVID19 ANTIGEN SOFIA FIA NEGATIVE (NEGATIVE)
[2025-06-07] MEDS: CARVEDILOL 12.5 MG TAB PO SCH (21:03)
[2025-06-07] MEDS: SACUBITRIL-VALSARTAN 24mg/26mg TAB PO SCH (21:47)
[2025-06-07] MEDS: ATORVASTATIN 20 MG TAB PO SCH (21:47)
[2025-06-07] MEDS: ACETAMINOPHEN 325 MG TAB PO PRN (21:54)
[2025-06-07] MEDS: IVABRADINE 5 MG TAB PO SCH (21:55)
[2025-06-07] MEDS: SILDENAFIL CITRATE 20 MG TAB PO SCH (21:56)
[2025-06-07] MEDS ORDERED: CARVEDILOL 12.5 MG TAB PO SCH (22:00)
[2025-06-07] MEDS ORDERED: HEPARIN SODIUM (PORCINE) 5000 UNITS/ML 1ML VIAL SC SCH (22:00)
[2025-06-07] MEDS: diphenhdrAMINE HCL 50 MG/1 ML VL ONE (22:46)
[2025-06-07] MEDS: diphenhdrAMINE HCL 50 MG/1 ML VL IV PRN (22:46)
[2025-06-07] MEDS: CARVEDILOL 3.125 MG TAB PO ONE (23:37)
[2025-06-08 04:17] LABS: Hematocrit 44.2 % (41.0-53.0); Hemoglobin 15.4 g/dL (13.5-17.5); Mean Corpuscular Hemoglobin 31.2 pg (28.0-32.0); Mean Corpuscular Volume 89.5 fL (80.0-100.0); Nucleated Red Blood Cells % 0.1 %
[2025-06-08 04:34] LABS: Alanine Aminotransferase 15 U/L (7-40); Albumin 4.0 g/dL (3.2-4.8); Alkaline Phosphatase 66 U/L (46-116); Anion Gap 12 (5-15); BUN/Creatinine Ratio 11.8 (10.0-20.0); Calcium 8.9 mg/dL (8.7-10.4); Carbon Dioxide 24 mmol/L (20-31); Total Protein 7.0 g/dL (5.7-8.2)
[2025-06-08 04:35] LABS: Bilirubin, Total 0.8 mg/dL (0.2-1.0)
[2025-06-08 04:46] LABS: Blood Urea Nitrogen 28 mg/dL (9-23); Chloride 98 mmol/L (98-107); Glucose 150 mg/dL (74-106); Potassium 3.2 mmol/L (3.5-5.1); Sodium 134 mmol/L (136-145)
[2025-06-08 07:36] VITALS: PULSE 84; RESP 17; O2SAT 99
--- NOTE | 2025-06-08 08:14 | DVHPN2 ---
Subjective Feels slightly better but still with generalized weakness and lightheadedness Reviewed: Care Plan, H&P, Labs, Medications, Previous Orders, Radiology, Other (Consultations) Changes from previous H/P or p: Changes Objective Vitals Vital Signs Date Time Temp Pulse Resp B/P (MAP) Pulse Ox O2 Delivery O2 Flow Rate FiO2 06/08/25 08:00 83/61 06/08/25 07:00 119 15 100 06/08/25 06:00 97.4 97.4 06/07/25 19:30 Nasal Cannula* 2 28 Intake/Output Intake and Output 06/08/25 07:00 Intake Total 1000 ml Balance 1000 ml Intake IV Total 1000 ml General Appearance: Alert, Oriented X3, Cooperative, No acute distress HEENT: Atraumatic Lungs: Clear to auscultation, Normal air movement Cardiovascular: Regular rate, Normal S1, Normal S2, Other (ICD in place) Abdomen: Normal bowel sounds, Soft, No tenderness Extremities: Other (Pitting edema) Neuro: Normal speech, Cranial nerves 3-12 NL Psych/Mental Status: Mental status NL, Mood NL Medications Current Medications Medications Dose Ordered Sig/Yoni Route Start Time Stop Time Status Last Admin Dose Admin Norepinephrine Bitartrate 250 ml @ 3.75 mls/hr Q24H IV 06/07/25 10:15 06/08/25 06:30 3.75 MLS/HR Acetaminophen 650 mg Q6HP PRN PO 06/07/25 17:00 06/07/25 21:54 650 MG Nitroglycerin 0.4 mg Q5MINP PRN SL 06/07/25 17:00 Hold Morphine Sulfate 2 mg Q30M PRN IV 06/07/25 17:00 06/07/25 20:12 2 MG Digoxin 0.125 mg DAILY PO 06/08/25 10:00 Furosemide 20 mg DAILY PO 06/08/25 10:00 Sacubitril/ Valsartan 1 tab BID PO 06/07/25 22:00 06/07/25 21:47 1 TAB Sildenafil Citrate 20 mg TID PO 06/07/25 22:00 Sotalol HCl 40 mg Q24H PO 06/07/25 18:00 Topiramate 100 mg HS PO 06/07/25 18:00 06/07/25 18:29 100 MG Ivabradine 7.5 mg BID PO 06/07/25 22:00 Potassium Chloride 10 meq DAILY PO 06/08/25 10:00 Atorvastatin Calcium 20 mg HS PO 06/07/25 22:00 06/07/25 21:47 20 MG Patient Own Medication 1 tab DAILY PO 06/08/25 10:00 Diphenhydramine HCl 25 mg Q4HP PRN IV 06/07/25 22:30 06/07/25 22:46 25 MG Carvedilol 12.5 mg BID PO 06/08/25 10:00 Laboratory Results Laboratory Tests 06/08/25 03:44 Chemistry Test 06/07/25 08:49 06/07/25 13:54 06/08/25 03:44 Albumin 4.4 g/dL (3.2-4.8) 4.0 g/dL (3.2-4.8) Calcium Level 9.5 mg/dL (8.7-10.4) 8.9 mg/dL (8.7-10.4) Total Protein 8.0 g/dL (5.7-8.2) 7.0 g/dL (5.7-8.2) Magnesium Level 2.0 mg/dL (1.6-2.6) LFT Test 06/07/25 08:49 06/08/25 03:44 Alanine Aminotransferase (ALT) 20 U/L (7-40) 15 U/L (7-40) Alkaline Phosphatase 73 U/L (46-116) 66 U/L (46-116) Aspartate Amino Transferase (AST) 26 U/L (13-40) 22 U/L (13-40) Total Bilirubin 0.9 mg/dL (0.2-1.0) 0.8 mg/dL (0.2-1.0) Labs and/or images reviewed: Labs reviewed by me, Image(s) reviewed by me Assessment/Plan Assessment/Plan A 60-year-old male patient; multiple comorbidities; who presented to the emergency department with lightheadedness with generalized weakness. Cardiogenic shock causing lightheadedness with generalized weakness Acute on chronic systolic heart failure NSTEMI; type 2 NJ; demand ischemia due to above SATHISH on CKD; vasomotor nephropathy Nonischemic cardiomyopathy Polysubstance use disorder including methamphetamine/marijuana/tobacco Peripheral artery disease History of hyperparathyroidism Pulmonary hypertension, type 2 Chronic migraines Hypokalemia Dyslipidemia Reviewed available lab work, imaging study, and echocardiogram Continue and adjust IV vasopressors as indicated; at this time only on low-dose of norepinephrine; no central line as per patient's preference at this time Cardiology and Nephrology are following Avoid nephrotoxic agents Telemetry On DVT and GI prophylax Continue statin Replace and correct electrolytes as needed Continue topiramate for migraines along with pain management as indicated Counseled the patient for 22 minutes on methamphetamine/marijuana/tobacco use cessation; 12 minutes exclusively for tobacco use cessation Continue close monitoring Goals of care discussed for 20 minutes; full code 90 minutes of critical care time Late Entry. This medical document was created using an electronic medical record system with computerized dictation system. Although this document has been carefully reviewed, there might still be some phonetic and typographical errors. These areas are purely typographical due to imperfections of the software programs, and do not reflect any compromise in the patient's medical care. Plan discussed with: Patient, Other (Nurse) My Orders Orders - ELENA POSADA MD Procedure Category Date Status Time Potassium Chl Jonathan PHA 06/08/25 Transmitted KCL 08:15 Basic Metabolic Panel LAB 06/09/25 Verified 04:00 Complete Blood Count LAB 06/09/25 Verified 04:00 Lactic Acid W/ Reflex LAB 06/08/25 Transmitted Order 08:12 Date of Service: Jun 08, 2025 Billing Provider: ELENA POSADA MD Common Visit Codes: [id number] CARE 30-74 MIN (90 minutes), [id number] CARE-EACH +30MIN Secondary Visit Codes: [id number] CHNG SMOKING >10MIN (Counseled the patient for 22 minutes on methamphetamine/marijuana/tobacco use cessation; 12 minutes exclusively for tobacco use cessation), [id number] CARE PLAN 30 MINUTES (20 minutes) ELENA POSADA MD Jun 08, 2025 08:14
--- NOTE | 2025-06-08 08:59 | DVHINCON2 ---
Date of service: Jun 08, 2025 Referring Physician Hospitalist Reason for Consultation Acute kidney injury History of Present Illness 60-year-old male with past medical history of nonischemic cardiomyopathy in the setting of methamphetamine abuse, history of atrial fibrillation, severe systolic heart failure with ejection fraction less than 10% who presents to the hospital complaining of near syncopal episode including dizziness, unsteady gait and weakness. Patient was found at presentation to have systolic blood pressure less than 100 and heart rate greater than 100. Nephrology is consulted due to elevated creatinine level. Patient endorses one time recent use of methamp hetamine one week ago. He reports he saw a new kennel staff member in [place] who recommended changes in medications including stopping pulmonary hypertension medicine, stopping corlinar, starting SGLT2, starting Entresto, starting metoprolol. Patient is seen in the ER by me noted to have a heart rate of 120 currently on Levophed for blood pressure support Past Medical History History of kidney stones Primary hyperparathyroidism Past Surgical History Parathyroidectomy Lithotripsy Hernia repair inguinal with mesh Allergies: Coded Allergies: Codeine (Verified Allergy, Unknown, 08/21/23) Ethanol (Verified Allergy, Unknown, 08/21/23) Promethazine (Verified Allergy, Unknown, 08/21/23) Morphine (Verified Adverse Reaction, Intermediate, 06/07/25) Home Meds Reported Medications Vericiguat (Verquvo) 2.5 Mg Tab, 1 TAB PO DAILY for HEART FAILURE 08/23/23 Cazrzrcbffw-Mgmyqrknsbcp-Emsai (Trelegy Ellipta 100-62.5-25 Mcg/INH) 1 Aer Aer, 1 PUFF IN DAILY for COPD 08/23/23 Rosuvastatin Calcium (Crestor) 10 Mg Tab, 1 TAB PO DAILY for HIGH CHOLESTEROL 08/23/23 Sotalol Hcl (Sotalol Hcl) 80 Mg Tab, 0.5 TAB PO BID for ARRYTHMIA 08/23/23 Furosemide (Furosemide) 20 Mg Tab, 1 TAB PO for HEART FAILURE 08/23/23 Sacubitril-Valsartan (Entresto 24-26 mg) 1 Tab Tab, 1 TAB PO BID for HEART FAILURE 08/23/23 Digoxin (Digoxin) 125 Mcg Tab, 1 TAB PO DAILY for ARRYTHMIA 08/23/23 Sildenafil Citrate (Sildenafil Citrate) 20 Mg Tab, 1 TAB PO TID for PULMONARY HYPERTENSION 08/23/23 Topiramate (Topiramate) 100 Mg Tab, 1 TAB PO QPM for SEIZURES 08/23/23 Ivabradine Hydrochloride (Corlanor) 7.5 Mg Tab, 1 TAB PO BID for HEART FAILURE 08/23/23 Carvedilol (COREG) 12.5 Mg Tab, 1 TAB PO BID for HYPERTENSION 08/23/23 Potassium Chloride (Klor-Con M10) 10 Meq Tab, 1 TAB PO DAILY for SUPPLEMENT 08/21/23 Current Medications Current Medications Medications (Trade) Dose Ordered Sig/Yoni Route PRN Reason Start Time Stop Time Status Last Admin Norepinephrine Bitartrate 250 ml @ 3.75 mls/hr Q24H IV 06/07/25 10:15 06/08/25 06:30 Acetaminophen (Tylenol Tablet) 650 mg Q6HP PRN PO PAIN SCALE 1-3 OR TEMP>100.4 06/07/25 17:00 06/07/25 21:54 Nitroglycerin (Ntrostat Sublingual) 0.4 mg Q5MINP PRN SL FOR CHEST PAIN 06/07/25 17:00 Hold Morphine Sulfate 2 mg Q30M PRN IV FOR CHEST PAIN 06/07/25 17:00 06/07/25 20:12 Heparin Sodium (Porcine) 5,000 units Q12HR SC 06/07/25 22:00 06/07/25 17:28 DC Carvedilol (Coreg Tablet) 12.5 mg BID PO 06/07/25 22:00 06/07/25 20:38 DC Digoxin (Lanoxin Tablet) 0.125 mg DAILY PO 06/08/25 10:00 Furosemide (Lasix Tablet) 20 mg DAILY PO 06/08/25 10:00 Sacubitril/ Valsartan (Entresto 24-26 Mg tab) 1 tab BID PO 06/07/25 22:00 06/07/25 21:47 Sildenafil Citrate (Revatio) 20 mg TID PO 06/07/25 22:00 Sotalol HCl (Betapace) 40 mg Q24H PO 06/07/25 18:00 Topiramate (Topamax) 100 mg HS PO 06/07/25 18:00 06/07/25 18:29 Ivabradine (Corlanor) 7.5 mg BID PO 06/07/25 22:00 Potassium Chloride (Klor-Con Tablet) 10 meq DAILY PO 06/08/25 10:00 Atorvastatin Calcium (Lipitor) 20 mg HS PO 06/07/25 22:00 06/07/25 21:47 Patient Own Medication 1 tab DAILY PO 06/08/25 10:00 Carvedilol (Coreg Tablet) 3.3 mg BID PO 06/07/25 20:45 06/07/25 23:32 DC 06/07/25 21:03 Diphenhydramine HCl (Benadryl Injection) 25 mg Q4HP PRN IV FOR ITCHING 06/07/25 22:30 06/07/25 22:46 Carvedilol (Coreg Tablet) 12.5 mg BID PO 06/08/25 10:00 Future Hold Review of Systems Weakness, chest pain, palpitations, near-syncope H&P Exam Vital Signs/I&O Vital Sign Date Time Temp Pulse Resp B/P (MAP) Pulse Ox O2 Delivery O2 Flow Rate FiO2 06/08/25 08:49 96 06/08/25 08:00 83/61 06/08/25 07:55 98.0 17 94 98.0 06/08/25 07:36 Room Air* 0 21 Intake and Output 06/07/25 06/08/25 19:00 07:00 Intake Total 1000 ml Balance 1000 ml Intake IV Total 1000 ml Physical Exam Mildly anxious elderly white male not in overt distress mild tachycardia irregular rate and rhythm, abdomen is soft, no pitting edema Labs/Diagnostic Data Labs/Diagnostic Data Laboratory Tests Test 06/08/25 08:30 06/08/25 03:44 06/07/25 13:54 06/07/25 11:14 Range/Units White Blood Count 8.3 # 4.4-10.8 10^3/uL Red Blood Count 4.94 4.5-5.90 10^6/uL Hemoglobin 15.4 13.5-17.5 g/dL Hematocrit 44.2 41.0-53.0 % Mean Corpuscular Volume 89.5 80.0-100.0 fL Mean Corpuscular Hemoglobin 31.2 28.0-32.0 pg Mean Corpuscular Hemoglobin Concent 34.8 32.0-36.0 g/dL Red Cell Distribution Width 17.4 H 11.8-14.3 % Platelet Count 249 140-450 10^3/uL Mean Platelet Volume 7.2 6.9-10.8 fL Neutrophils (%) (Auto) 70.9 37.0-80.0 % Lymphocytes (%) (Auto) 16.8 10.0-50.0 % Monocytes (%) (Auto) 10.2 0.0-12.0 % Eosinophils (%) (Auto) 1.4 0.0-7.0 % Basophils (%) (Auto) 0.7 0.0-2.0 % Neutrophils # (Auto) 5.9 1.6-8.6 10 ^3/uL Lymphocytes # (Auto) 1.4 0.4-5.4 10 ^3/uL Monocytes # (Auto) 0.8 0-1.3 10 ^3/uL Eosinophils # (Auto) 0.1 0-0.8 10 ^3/uL Basophils # (Auto) 0.1 0-0.2 10 ^3/uL Nucleated Red Blood Cells 0.1 % Sodium Level 134 L 136-145 mmol/L Potassium Level 3.2 L 3.5-5.1 mmol/L Chloride Level 98 98-107 mmol/L Carbon Dioxide Level 24 20-31 mmol/L Anion Gap 12 5-15 Blood Urea Nitrogen 28 H 9-23 mg/dL Creatinine 2.38 H 0.700-1.30 mg/dL Glomerular Filtration Rate Calc 30 >90 mL/min BUN/Creatinine Ratio 11.8 10.0-20.0 Serum Glucose 150 H 74-106 mg/dL Calcium Level 8.9 8.7-10.4 mg/dL Total Bilirubin 0.8 0.2-1.0 mg/dL Aspartate Amino Transferase (AST) 22 13-40 U/L Alanine Aminotransferase (ALT) 15 7-40 U/L Alkaline Phosphatase 66 46-116 U/L Total Protein 7.0 5.7-8.2 g/dL Albumin 4.0 3.2-4.8 g/dL Digoxin Level 0.44 L 0.8-2 ng/mL Magnesium Level 2.0 1.6-2.6 mg/dL Troponin I High Sensitivity 608 *H 581 *H </=54 ng/L Test 06/07/25 08:49 06/07/25 00:00 Range/Units White Blood Count 11.6 H 4.4-10.8 10^3/uL Red Blood Count 5.39 4.5-5.90 10^6/uL Hemoglobin 16.3 13.5-17.5 g/dL Hematocrit 49.0 41.0-53.0 % Mean Corpuscular Volume 90.9 80.0-100.0 fL Mean Corpuscular Hemoglobin 30.3 28.0-32.0 pg Mean Corpuscular Hemoglobin Concent 33.3 32.0-36.0 g/dL Red Cell Distribution Width 16.9 H 11.8-14.3 % Platelet Count 282 140-450 10^3/uL Mean Platelet Volume 6.8 L 6.9-10.8 fL Neutrophils (%) (Auto) 69.2 37.0-80.0 % Lymphocytes (%) (Auto) 19.3 10.0-50.0 % Monocytes (%) (Auto) 10.1 0.0-12.0 % Eosinophils (%) (Auto) 1.0 0.0-7.0 % Basophils (%) (Auto) 0.4 0.0-2.0 % Neutrophils # (Auto) 8.0 1.6-8.6 10 ^3/uL Lymphocytes # (Auto) 2.2 0.4-5.4 10 ^3/uL Monocytes # (Auto) 1.2 0-1.3 10 ^3/uL Eosinophils # (Auto) 0.1 0-0.8 10 ^3/uL Basophils # (Auto) 0 0-0.2 10 ^3/uL Nucleated Red Blood Cells 0.0 % Sodium Level 136 136-145 mmol/L Potassium Level 3.2 L 3.5-5.1 mmol/L Chloride Level 98 98-107 mmol/L Carbon Dioxide Level 22 20-31 mmol/L Anion Gap 16 H 5-15 Blood Urea Nitrogen 22 9-23 mg/dL Creatinine 2.58 H 0.700-1.30 mg/dL Glomerular Filtration Rate Calc 27 >90 mL/min BUN/Creatinine Ratio 8.5 L 10.0-20.0 Serum Glucose 101 74-106 mg/dL Calcium Level 9.5 8.7-10.4 mg/dL Total Bilirubin 0.9 0.2-1.0 mg/dL Aspartate Amino Transferase (AST) 26 13-40 U/L Alanine Aminotransferase (ALT) 20 7-40 U/L Alkaline Phosphatase 73 46-116 U/L Troponin I High Sensitivity 546 *H </=54 ng/L Total Protein 8.0 5.7-8.2 g/dL Albumin 4.4 3.2-4.8 g/dL SARS-CoV-2 Antigen (Rapid) Negative NEGATIVE Assessment 60-year-old male with nonischemic cardiomyopathy ejection fraction less than 10% presents to the hospital with dizziness and near syncopal episode in the setting of supraventricular tachycardia and hypotension Acute kidney injury hemodynamically mediated in the setting of tachycardia and hypotension Chronic kidney disease stage IIIA Nonischemic cardiomyopathy with decompensated heart failure ejection fraction less than 12% Methamphetamine abuse Cardiogenic shock due to SVT Elevated troponins Continue with Levophed to maintain mean arterial pressure greater than 65 Rate control as per Cardiology Continue with p.o. Lasix Patient reports history of parathyroid adenoma removal we will monitor calcium levels closely obtain PTH level, vitamin-D level Replace electrolytes accordingly Strict Is&Os Obtain urinalysis, urine drug screen, urine protein creatinine ratio Avoid contrast studies at this time is GFR is currently below patient's baseline Guarded prognosis risk of cardiac event this time is currently increase Rest of care as per primary medical team Care time spent 55 minutes Plan discussed with: Patient PORSHA JACKSON MD Jun 08, 2025 08:59
[2025-06-08] MEDS: POTASSIUM CHLORIDE 60 MEQ, LIDOCAINE 1% (LOCAL ANESTH.) 6 ML in SODIUM CHL 0.9% 500 ML IV ONE (09:12)
[2025-06-08] MEDS: DIGOXIN 0.125 MG TAB PO SCH (09:34)
[2025-06-08] MEDS: POTASSIUM CHL 10 Meq TABLET PO SCH (09:34)
[2025-06-08] MEDS: FUROSEMIDE 20 MG TAB PO SCH (09:35)
[2025-06-08] MEDS ORDERED: VERICIGUAT 2.5 MG PO SCH (10:00)
--- NOTE | 2025-06-08 10:26 | DVHINCON2 ---
Date of service: Jun 08, 2025 History of Present Illness HPI Patient is a 60-year-old gentleman who presented to the hospital with generalized weakness shortness of breath/generalized body pain including chest discomfort. These problem slowly worsened and he decided to come to the hospital. He is known to our practice (cardiology) from before and outside. For his cardiac care, patient also goes to [facility] [place]. Around few weeks ago, [facility] [place] [facility]ology stopped his sotalol/ambrisentan/sildenafil and started him on Farxiga. It is of note that the patient does have history of SVT/NSVT. Does have history of nonischemic cardiomyopathy and systolic heart failure. Does have BiV-ICD (Biotronik) from before. Previously was on sotalol for repeated NSVTs. While being evaluated emergency room, the patient was found to be hypotensive with worsened kidney function. His troponin was also elevated. He has been started on Levophed. It is of note that the patient does have chronically elevated troponin which was previously assessed to reflect demand physiology in the patient with systolic heart failure. He has previously been assessed to have type 2 pulmonary hypertension. His history includes methamphetamine/cannabinoid abuse (he mentions use of amphetamine around a week prior to presentation). Home Meds Reported Medications Vericiguat (Verquvo) 2.5 Mg Tab, 1 TAB PO DAILY for HEART FAILURE 08/23/23 Adilysliwjf-Ootzlqehoagv-Hoask (Trelegy Ellipta 100-62.5-25 Mcg/INH) 1 Aer Aer, 1 PUFF IN DAILY for COPD 08/23/23 Rosuvastatin Calcium (Crestor) 10 Mg Tab, 1 TAB PO DAILY for HIGH CHOLESTEROL 08/23/23 Sotalol Hcl (Sotalol Hcl) 80 Mg Tab, 0.5 TAB PO BID for ARRYTHMIA 08/23/23 Furosemide (Furosemide) 20 Mg Tab, 1 TAB PO for HEART FAILURE 08/23/23 Sacubitril-Valsartan (Entresto 24-26 mg) 1 Tab Tab, 1 TAB PO BID for HEART FAILURE 08/23/23 Digoxin (Digoxin) 125 Mcg Tab, 1 TAB PO DAILY for ARRYTHMIA 08/23/23 Sildenafil Citrate (Sildenafil Citrate) 20 Mg Tab, 1 TAB PO TID for PULMONARY HYPERTENSION 08/23/23 Topiramate (Topiramate) 100 Mg Tab, 1 TAB PO QPM for SEIZURES 08/23/23 Ivabradine Hydrochloride (Corlanor) 7.5 Mg Tab, 1 TAB PO BID for HEART FAILURE 08/23/23 Carvedilol (COREG) 12.5 Mg Tab, 1 TAB PO BID for HYPERTENSION 08/23/23 Potassium Chloride (Klor-Con M10) 10 Meq Tab, 1 TAB PO DAILY for SUPPLEMENT 08/21/23 Past Medical History Others Past medical history includes systolic heart failure, nonischemic cardiomyopathy, SVT, NSVT, type 2 pulmonary hypertension, hypertension, chronically elevated troponin (troponin was 680 -700 in January 2024/[facility]), kidney stones, hyperlipidemia, status post BiV-ICD (Biotronik) implantation, peripheral artery disease, diverticular disease, COPD, old history of hepatitis-B, old history of syphilis (as per patient: Patient completed treatment years ago), history of hyperparathyroidism and status post hernia repair. Does have history of methamphetamine/cannabinoid abuse. Drugs: Marijuana, Amphetimines Review of Systems Constitutional: Malaise Pulmonary/Respiratory: Dyspnea Cardiovascular: Chest Pain, Lt Headedness All Other Systems Fourteen point review of system was performed. Relevant findings as per above and as per HPI. Otherwise negative. H&P Exam Vital Signs Vital Signs Date Time Temp Pulse Resp B/P (MAP) Pulse Ox O2 Delivery O2 Flow Rate FiO2 06/08/25 09:37 85 19 96/48 06/08/25 07:55 98.0 94 98.0 06/08/25 07:36 Room Air* 0 21 General Appeara: Well developed Head Exam: Normal inspection Eye Exam: bilateral eye PERRL Mouth: Normal Inspection Pulmonary/Respiratory: Rhonci Cardiovascular/Chest: Systolic murmur Abdominal Exam: Normal bowel sounds, Soft Neuro/Mental St: Alert, Oriented Appearance: Appropriate appearance Eye contact/ Speech: Cooperative Labs/Xrays Labs Test 06/08/25 08:30 06/08/25 03:44 06/07/25 13:54 06/07/25 00:00 Range/Units Lactic Acid Level 1.8 0.4-2.0 mmol/L White Blood Count 8.3 # 4.4-10.8 10^3/uL Red Blood Count 4.94 4.5-5.90 10^6/uL Hemoglobin 15.4 13.5-17.5 g/dL Hematocrit 44.2 41.0-53.0 % Mean Corpuscular Volume 89.5 80.0-100.0 fL Mean Corpuscular Hemoglobin 31.2 28.0-32.0 pg Mean Corpuscular Hemoglobin Concent 34.8 32.0-36.0 g/dL Red Cell Distribution Width 17.4 H 11.8-14.3 % Platelet Count 249 140-450 10^3/uL Mean Platelet Volume 7.2 6.9-10.8 fL Neutrophils (%) (Auto) 70.9 37.0-80.0 % Lymphocytes (%) (Auto) 16.8 10.0-50.0 % Monocytes (%) (Auto) 10.2 0.0-12.0 % Eosinophils (%) (Auto) 1.4 0.0-7.0 % Basophils (%) (Auto) 0.7 0.0-2.0 % Neutrophils # (Auto) 5.9 1.6-8.6 10 ^3/uL Lymphocytes # (Auto) 1.4 0.4-5.4 10 ^3/uL Monocytes # (Auto) 0.8 0-1.3 10 ^3/uL Eosinophils # (Auto) 0.1 0-0.8 10 ^3/uL Basophils # (Auto) 0.1 0-0.2 10 ^3/uL Nucleated Red Blood Cells 0.1 % Sodium Level 134 L 136-145 mmol/L Potassium Level 3.2 L 3.5-5.1 mmol/L Chloride Level 98 98-107 mmol/L Carbon Dioxide Level 24 20-31 mmol/L Anion Gap 12 5-15 Blood Urea Nitrogen 28 H 9-23 mg/dL Creatinine 2.38 H 0.700-1.30 mg/dL Glomerular Filtration Rate Calc 30 >90 mL/min BUN/Creatinine Ratio 11.8 10.0-20.0 Serum Glucose 150 H 74-106 mg/dL Calcium Level 8.9 8.7-10.4 mg/dL Total Bilirubin 0.8 0.2-1.0 mg/dL Aspartate Amino Transferase (AST) 22 13-40 U/L Alanine Aminotransferase (ALT) 15 7-40 U/L Alkaline Phosphatase 66 46-116 U/L Total Protein 7.0 5.7-8.2 g/dL Albumin 4.0 3.2-4.8 g/dL Digoxin Level 0.44 L 0.8-2 ng/mL Magnesium Level 2.0 1.6-2.6 mg/dL Troponin I High Sensitivity 608 *H </=54 ng/L SARS-CoV-2 Antigen (Rapid) Negative NEGATIVE Assessment/Plan Plan Patient is a 60-year-old gentleman who presented to the hospital with generalized weakness shortness of breath/generalized body pain including chest discomfort. These problem slowly worsened and he decided to come to the hosp ital. He is known to our practice (cardiology) from before and outside. For his cardiac care, patient also goes to [facility] [place]. Around few weeks ago, [facility] [place] [facility]ology stopped his sotalol/ambrisentan/sildenafil and started him on Farxiga. It is of note that the patient does have history of SVT/NSVT. Does have history of nonischemic cardiomyopathy and systolic heart failure. Does have BiV-ICD (Biotronik) from before. Previously was on sotalol for repeated NSVTs. While being evaluated emergency room, the patient was found to be hypotensive with worsened kidney function. His troponin was also elevated. He has been started on Levophed. It is of note that the patient does have chronically elevated troponin which was previously assessed to reflect demand physiology in the patient with systolic heart failure. He has previously been assessed to have type 2 pulmonary hypertension. His history includes methamphetamine/cannabinoid abuse (he mentions use of amphetamine around a week prior to presentation). Positive JVD. Mucosa is pink and wet. No carotid bruit. No goiter. Scattered rhonchi and crackles in the lungs is heard. Cardiac: Systolic murmur 3/6 in the apex and left sternal borders heard. Abdomen is soft. Bowel sound is positive. Extremities reveal 2+ edema. Dorsalis pedis is 2+ bilateral. There is no gross lateralized neurologic deficit. Past medical history includes systolic heart failure, nonischemic cardiomyopathy, SVT, NSVT, type 2 pulmonary hypertension, hypertension, chronically elevated troponin (troponin was 680 -700 in January 2024/[facility]), kidney stones, hyperlipidemia, status post BiV-ICD (Biotronik) implantation, peripheral artery disease, diverticular disease, COPD, old history of hepatitis-B, old history of syphilis (as per patient: Patient completed treatment years ago), history of hyperparathyroidism and status post hernia repa ir. Does have history of methamphetamine/cannabinoid abuse. Echocardiogram of 2019 had reported ejection fraction of less than 20%, severe TR/MR, left ventricular enlargement and severe pulmonary artery hypertension Echocardiogram of January 2025 had reported ejection fraction of less than 20% Echocardiogram of March 2025 (performed in [facility]) reported ejection fraction of 10-15% Left heart catheterization of August 23, 2023 had revealed normal coronaries, nonischemic cardiomyopathy, ejection fraction of 20% and left ventricular end- diastolic pressure of 20 mm Hg WBC: 11.6 - 8.3 Creatinine: 2.58 - 2.38 Potassium: 3.2 - 3.2 Magnesium: 2.0 Troponin (high sensitive): 546 - 581 - 608 Digoxin level: 0.44 Chest x-ray revealed: IMPRESSION: Cardiomegaly with pulmonary vascular congestion. EKG on arrival revealed wide complex rhythms with area of irregularity questioning AFib versus V-tach Tele reveals sinus rhythm, occasions of ventricular paced rhythm Patient is a 60-year-old gentleman with history of advanced nonischemic cardiomyopathy/systolic heart failure who presented with generalized weakness, hypotension and generalized body pain. Did have some chest pains. Troponin has been flat and somehow elevated. Does have old history of abnormal/elevated troponin. Has previously been evaluated to have chronically elevated troponin secondary to demand physiology in a patient with nonischemic cardiomyopathy. Had normal coronaries in August 2023. ACS is not considered at this point. Does have history of substance abuse which could have contributed to the clinical picture. His medications have been recently changed and sotalol was stopped. Does have history of NSVT and stopping Sotalol could have contributed to the clinical picture. Is found to have worsened kidney function tests compared to his baseline and SATHISH secondary to hypotension/cardiorenal could be contributing to the clinical picture. Acute on chronic systolic heart failure Hypotension Abnormal troponin, demand physiology SATHISH Nonischemic cardiomyopathy Systolic heart failure Methamphetamine abuse History of peripheral artery disease History of hyperparathyroidism Type 2 pulmonary hypertension Cardiac suggestion for management: Manage in ICU Follow-up electrolytes and kidney function tests and correct abnormalities Pressor support: Levophed IV Amiodarone for now Request for Echocardiogram Request for interrogation of the BiV-ICD (NextVRronik) Request for D-dimer, if abnormal: request for V/Q scan Request for urine drug screen Request for renal/bladder sonogram Nephrology evaluation Further evaluation and management depends on the above and clinical course Thank you for consultation A total of 75 minutes was spent reviewing the patient record, examining the patient, making a diagnostic and therapeutic plan, discussing this plan with medical personnel, following up on diagnostic studies and following the patient for clinical stability excluding any and all procedures. At least 50% of this time was spent in direct, [id number] contact. Thank you for allowing me to participate in this patient's care. Further recommendations will depend on patient's clinical course. Please do not hesitate to contact me if you have any questions or concerns. This medical document was created using electronic medical record system with Nu3 computerized dictation system. Although this document has been carefully reviewed, there may still be some phonetic and typographical errors. These areas are purely typographical due to the imperfection of the software programs, and do not reflect any compromise in the patient's medical care. Plan discussed with: Patient, Other (nurse) SHONDA WALSH MD Jun 08, 2025 10:26
[2025-06-08] MEDS: AMIODARONE 360mg/200mL PREMIX 200 ML IV ONE (10:27)
--- NOTE | 2025-06-08 10:38 | DVH ---
INDICATION: abnormal renal function TECHNIQUE: Multiple real-time sonographic images of the kidneys and bladder were obtained. COMPARISON: None FINDINGS: RIGHT KIDNEY: Measures 9.3 cm. Normal in echogenicity. No mass. 6 mm stone within the right kidney. N o hydronephrosis. LEFT KIDNEY: Measures 10.1 cm. Normal in echogenicity. No mass. No urinary stones. No hydronephrosi s. BLADDER: Distended. IMPRESSION: 1. No hydronephrosis. 2. Right nephrolithiasis.
[2025-06-08 10:52] LABS: INR 1.02 (0.9-1.15); Partial Thromboplastin Time 26.6 SEC (24.5-34.5); Prothrombin Time 10.8 sec (9.3-11.8)
--- NOTE | 2025-06-08 11:04 | CONS ---
Pharmacy Clinical Information: INITIATE HEPARIN DRIP AT RATE 1000 UNITS/HR (ACS PROTOCOL FOR PATIENT WT 89.6KG, PT HAS ELEVATED TROPONIN & HX AFIB/ARRHYTHMIA) NO BOLUS (PT PREVIOUSLY ON ENOXAPARIN) APTT DRAW SCHEDULED AT 1700 PER RX PROTOCOL CONFIRMED WITH RN PAULINE ALVARADO PHARMACIST Jun 08, 2025 11:04
[2025-06-08] MEDS: HEPARIN DRIP/D5W 100UNITS/ML 250 ML IV SCH ×2 (11:20→18:15)
[2025-06-08 13:20] VITALS: PULSE 73; RESP 17; O2SAT 97
[2025-06-08] MEDS: AMIODARONE 360mg/200mL PREMIX 200 ML IV SCH (16:19)
[2025-06-08] MEDS: HYDROcodone-ACET 10/325MG TAB PO PRN (16:22)
[2025-06-08 16:57] LABS: Urine Protein, UAD Negative (Negative)
[2025-06-08 17:04] LABS: Protein, Urine 27.5 mg/dL (1-14); Protein, Urine 30.5 mg/dL (1-14)
[2025-06-08 17:07] LABS: Cannabinoid Screen, Urine Neg (NEGATIVE)
[2025-06-08 17:20] LABS: Amphetamine Screen, Urine Pos (NEGATIVE); Barbiturate Scree,Urine Neg (NEGATIVE); Benzodiazephine Screen, Urine Neg (NEGATIVE); Cocaine Screen, Urine Neg (NEGATIVE); Opiate Scree,Urine Pos (NEGATIVE); Phencyclidine Screen, Urine Neg (NEGATIVE)
[2025-06-08 17:31] LABS: INR 1.03 (0.9-1.15); Partial Thromboplastin Time 38.4 SEC (24.5-34.5); Prothrombin Time 10.9 sec (9.3-11.8)
--- NOTE | 2025-06-08 18:10 | CONS ---
Pharmacy Clinical Information: INCREASE HEPARIN DRIP RATE FROM 1000 UNITS/HR TO 1200 UNITS/HR PER APTT = 38.4 (SUBTHERAPEUTIC) NEXT APTT DRAW SCHEDULED FOR 06/09 @0000 PER RX PROTOCOL PAULINE MARCELINO PHARMACIST Jun 08, 2025 18:10
[2025-06-09] MEDS: MORPHINE SULFATE INJ 2 MG/ml SYRG IV PRN (00:29)
[2025-06-09 00:57] LABS: INR 1.03 (0.9-1.15); Partial Thromboplastin Time 48.1 SEC (24.5-34.5); Prothrombin Time 10.9 sec (9.3-11.8)
[2025-06-09] MEDS: HEPARIN DRIP/D5W 100UNITS/ML 250 ML IV SCH (01:32)
[2025-06-09 06:17] LABS: Chloride 104 mmol/L (98-107); Potassium 4.0 mmol/L (3.5-5.1); Sodium 138 mmol/L (136-145)
[2025-06-09 06:18] LABS: Anion Gap 8 (5-15); Carbon Dioxide 26 mmol/L (20-31)
[2025-06-09 06:23] LABS: BUN/Creatinine Ratio 12.8 (10.0-20.0); Blood Urea Nitrogen 22 mg/dL (9-23); Glucose 105 mg/dL (74-106)
[2025-06-09 06:24] LABS: Calcium 8.4 mg/dL (8.7-10.4)
[2025-06-09 08:19] LABS: INR 1.05 (0.9-1.15); Prothrombin Time 11.1 sec (9.3-11.8)
[2025-06-09 08:24] LABS: Partial Thromboplastin Time 71.7 SEC (24.5-34.5)
--- NOTE | 2025-06-09 08:30 | DVHSR ---
APPROVED REPORT EXAM: Two-dimensional and M-mode echocardiogram with Doppler and color Doppler. Blood Pressure: 94/53 mmHg INDICATION Elevated Troponin Surgery/Intervention Pacemaker: RISK [employer]CTORS Height: 5' 8", Weight: 174 DIMENSIONS LVDd6.7 (3.8-5.7cm)LA (2D)4.7 (1.9-4.0cm)Aortic Root3.5 (2.0-3.7cm) LVDs6.2 (2.5-4.0cm)LA (MM) (1.9-4.0cm)Aortic Cusp Exc2.1 (1.5-2.0cm) EF (%) 15.0 (55-70%)Rt. Atrium4.3 (1.9-4.0cm)Asc. Aorta cm IVSd1.4 (0.7-1.1cm)RV (D) (1.8-2.4cm) PWd1.4 (0.7-1.1cm) Mitral Valve MitralMitral Stenosis E wave1.00m/sMV Mean GR.mmHg E/A ratio0.02D MVAcm2 Aortic Valve Aortic ValveAortic Stenosis V10.30m/Nayeli Mean GR.3mmHg V21.00m/Nayeli Peak GR.4mmHg LVOT Diameter2.4 (1.8-2.4cm)Doppler AVA1.36cm2 Pulmonic Valve V20.50m/s Tricuspid Valve TR Velocity2.90m/s [id number] Conclusion Left ventricle: Left ventricle was dilated with significantly reduced systolic function. LVEF was 1 5%. Diffuse hypokinesis of left ventricle was seen. Increased filling pressures of left ventricle w as observed. Right ventricle was dilated. Both atria were dilated. Pacing wire was seen in right-sided chambers. Aortic valve was trileaflet. There was no aortic insufficiency/stenosis. There was [id number] mitral regurgitation. There was mild tricuspid regurgitation. Pulmonary valve did not reveal any i nsufficiency. Right ventricle systolic pressure was assessed at 50 mm Hg. There was no pericardial effusion. IVC was normal-sized with reduced respiratory variation.
--- NOTE | 2025-06-09 08:31 | DVHPN2 ---
Progress Note - Dictate Date Seen: Jun 09, 2025 Medical Necessity Reason Pt with a Central, PICC or Fol: No vital signs Vital Sign Date Time Temp Pulse Resp B/P (MAP) Pulse Ox O2 Delivery O2 Flow Rate FiO2 06/09/25 08:00 74 06/09/25 08:00 99.7 21 106/68 (81) 96 99.7 06/08/25 19:30 Room Air* 0 21 Total Intake and Output 06/08/25 06/08/25 06/09/25 15:00 23:00 07:00 Intake Total 33.33 ml 178.839 ml 145.450 ml Output Total 350 ml Balance 33.33 ml -171.161 ml 145.450 ml medications Current Medications Medications Dose Ordered Sig/Yoni Route Start Time Stop Time Status Last Admin Dose Admin Norepinephrine Bitartrate 250 ml @ 3.75 mls/hr Q24H IV 06/07/25 10:15 06/08/25 06:30 3.75 MLS/HR Acetaminophen 650 mg Q6HP PRN PO 06/07/25 17:00 06/09/25 05:20 650 MG Nitroglycerin 0.4 mg Q5MINP PRN SL 06/07/25 17:00 Hold Morphine Sulfate 2 mg Q30M PRN IV 06/07/25 17:00 06/08/25 09:37 2 MG Digoxin 0.125 mg DAILY PO 06/08/25 10:00 06/08/25 09:34 0.125 MG Furosemide 20 mg DAILY PO 06/08/25 10:00 06/08/25 09:35 20 MG Sotalol HCl 40 mg Q24H PO 06/07/25 18:00 Topiramate 100 mg HS PO 06/07/25 18:00 06/08/25 22:33 100 MG Potassium Chloride 10 meq DAILY PO 06/08/25 10:00 Atorvastatin Calcium 20 mg HS PO 06/07/25 22:00 06/08/25 22:33 20 MG Diphenhydramine HCl 25 mg Q4HP PRN IV 06/07/25 22:30 06/07/25 22:46 25 MG Carvedilol 12.5 mg BID PO 06/08/25 10:00 Hold Morphine Sulfate 2 mg Q4HPRN PRN IV 06/08/25 15:30 06/09/25 00:29 2 MG Acetaminophen/ Hydrocodone Bitart 1 tab Q6HP PRN PO 06/08/25 15:30 06/08/25 22:34 1 TAB Heparin Sodium/ Dextrose 250 ml @ 14 mls/hr [id number] IV 06/09/25 01:30 06/09/25 07:09 14 MLS/HR Amiodarone HCl 200 mg DAILY PO 06/09/25 10:00 laboratory and microbiology Laboratory Tests 06/09/25 05:30 Test 06/09/25 05:30 Range/Units Serum Glucose 105 74-106 mg/dL Assessment/Plan Patient is a 60-year-old gentleman who presented to the hospital with generalized weakness shortness of breath/generalized body pain including chest discomfort. These problem slowly worsened and he decided to come to the hospital. He is known to our practice (cardiology) from before and outside. For his cardiac care, patient also goes to [facility]. Around few weeks ago, [facility] stopped his sotalol/ambrisentan/sildenafil and started him on Farxiga. It is of note that the patient does have history of SVT/NSVT. Does have history of nonischemic cardiomyopathy and systolic heart failure. Does have BiV-ICD (Biotronik) from before. Previously was on sotalol for repeated NSVTs. While being evaluated emergency room, the patient was found to be hypotensive with worsened kidney function. His troponin was also elevated. He has been started on Levophed. It is of note that the patient does have chronically elevated troponin which was previously assessed to reflect demand physiology in the patient with systolic heart failure. He has previously been assessed to have type 2 pulmonary hypertension. His history includes methamphetamine/cannabinoid abuse (he mentions use of amphetamine around a week prior to presentation). Positive JVD. Mucosa is pink and wet. No carotid bruit. No goiter. Scattered rhonchi and crackles in the lungs is heard. Cardiac: Systolic murmur 3/6 in the apex and left sternal borders heard. Abdomen is soft. Bowel sound is positive. Extremities reveal 2+ edema. Dorsalis pedis is 2+ bilateral. There is no gross lateralized neurologic deficit. Past medical history includes systolic heart failure, nonischemic cardiomyopathy, SVT, NSVT, type 2 pulmonary hypertension, hypertension, chronically elevated troponin (troponin was 680 -700 in January 2024/[facility]), kidney stones, hyperlipidemia, status post BiV-ICD (Biotronik) implantation, peripheral artery disease, diverticular disease, COPD, old history of hepatitis-B, old history of syphilis (as per patient: Patient completed treatment years ago), history of hyperparathyroidism and status post hernia repair. Does have history of methamphetamine/cannabinoid abuse. Echocardiogram of 2018 had reported ejection fraction of less than 20%, severe TR/MR, left ventricular enlargement and severe pulmonary artery hypertension Echocardiogram of January 2025 had reported ejection fraction of less than 20% Echocardiogram of March 2025 (performed in [facility]) reported ejection fraction of 10-15% Left heart catheterization of August 23, 2023 had revealed normal coronaries, nonischemic cardiomyopathy, ejection fraction of 20% and left ventricular end- diastolic pressure of 20 mm Hg WBC: 11.6 - 8.3 today's pending Creatinine: 2.58 - 2.38 - 1.72 Potassium: 3.2 - 3.2 - 4.0 Magnesium: 2.0 Troponin (high sensitive): 546 - 581 - 608 Digoxin level: 0.44 D-dimer: 0.38 (wnl) Urine tox screen was positive for Opiates and Amphetamine Renal/Bladder Ultrasound revealed: IMPRESSION: 1. No hydronephrosis. 2. Right nephrolithiasis. Chest x-ray revealed: IMPRESSION: Cardiomegaly with pulmonary vascular congestion. EKG on arrival revealed wide complex rhythms with area of irregularity questioning AFib versus V-tach Tele reveals sinus rhythm, occasions of ventricular paced rhythm Echocardiogram revealed: Left ventricle: Left ventricle was dilated with significantly reduced systolic function. LVEF was 15%. Diffuse hypokinesis of left ventricle was seen. Increased filling pressures of left ventricle was observed. Right ventricle was dilated. Both atria were dilated. Pacing wire was seen in right-sided chambers. Aortic valve was trileaflet. There was no aortic insufficiency/stenosis. There was [id number] mitral regurgitation. There was mild tricuspid regurgitation. Pulmonary valve did not reveal any insufficiency. Right ventricle systolic pressure was assessed at 50 mm Hg. There was no pericardial effusion. IVC was normal-sized with reduced respiratory variation. Biotronik Bi V ICD interrogation: Battery status: Middle of service (MOS2); Remaining battery capacity: 15%; Battery: Approximately 1 year to replacement; DDD-CLS/BiV: 65/130; Sensing amplitude: A1.3/RV15.4/LV24.4 mV; Pacing impedance: A668/RV495/LV437 Ohms; Shock impedance: RV 84 Ohms; Pacing a/RV/ENTEROSTOMAL THERAPY NURSE: 54/94/96%; Atrial burden: 5.6%; Had atrial fibrillation with rapid response beginning at midnight of June 07, 2025; Normal function Patient is a 60-year-old gentleman with history of advanced nonischemic cardiomyopathy/systolic heart failure who presented with generalized weakness, hypotension and generalized body pain. Did have some chest pains. Troponin has been flat and somehow elevated. Does have old history of abnormal/elevated troponin. Has previously been evaluated to have chronically elevated troponin secondary to demand physiology in a patient with nonischemic cardiomyopathy. Had normal coronaries in August 2023. ACS is not considered at this point. Does have history of substance abuse which could have contributed to the clinical picture. His medications have been recently changed and sotalol was stopped. Does have history of NSVT and stopping Sotalol could have contributed to the clinical picture. Is found to have worsened kidney function tests compared to his baseline and SATHISH secondary to hypotension/cardiorenal could be contributing to the clinical picture. Is found to have atrial fibrillation in BiV ICD interrogation. Atrial fibrillation is a new finding for the patient. Recognizing comorbidities, CHADS-VASc score is elevated and long-term full anticoagulation is advised Acute on chronic systolic heart failure Hypotension Abnormal troponin, demand physiology SATHISH Nonischemic cardiomyopathy Systolic heart failure Methamphetamine abuse History of peripheral artery disease History of hyperparathyroidism Type 2 pulmonary hypertension Proteinuria New onset AFib Cardiac suggestion for management: Manage in ICU Follow-up electrolytes and kidney function tests and correct abnormalities Pressor support: Levophed IV Amiodarone for now Atrial fibrillation is a new finding for the patient. Recognizing comorbidities, CHADS-VASc score is elevated and long-term full anticoagulation is advised. For now is on Heparin drip, can be changed DOAC after stability and before discharge Nephrology follow up Further evaluation and management depends on the above and clinical course A total of 75 minutes was spent reviewing the patient record, examining the patient, making a diagnostic and therapeutic plan, discussing this plan with medical personnel, following up on diagnostic studies and following the patient for clinical stability excluding any and all procedures. At least 50% of this time was spent in direct, [id number] contact. Thank you for allowing me to participate in this patient's care. Further recommendations will depend on patient's clinical course. Please do not hesitate to contact me if you have any questions or concerns. This medical document was created using electronic medical record system with [employer] [address] computerized dictation system. Although this document has been carefully reviewed, there may still be some phonetic and typographical errors. These areas are purely typographical due to the imperfection of the software programs, and do not reflect any compromise in the patient's medical care. Plan discussed with: Patient, Other (nurse) SHONDA WALSH MD Jun 09, 2025 08:31
[2025-06-09 08:38] VITALS: PULSE 75; RESP 20; O2SAT 97
--- NOTE | 2025-06-09 09:10 | CONS ---
Pharmacy Clinical Information: HEPARIN DRIP @0744 aPTT 71.7 - NO BOLUS, NO CHANGE NEXT APTT SCHEDULED @1400 PER RX PROTOCOL CONFIRMED AND READ BACK WITH RN [facility] Jun 09, 2025 09:10
[2025-06-09 09:47] LABS: Hematocrit 40.7 % (41.0-53.0); Hemoglobin 13.9 g/dL (13.5-17.5); Mean Corpuscular Hemoglobin 30.7 pg (28.0-32.0); Mean Corpuscular Volume 90.0 fL (80.0-100.0); Nucleated Red Blood Cells % 0.2 %
--- NOTE | 2025-06-09 09:55 | DVHNC2 ---
Procedure - Biotronik Bi V ICD interrogation: Battery status: Middle of service (MOS2) Remaining battery capacity: 15% Battery: Approximately 1 year to replacement DDD-CLS/BiV: 65/130 Sensing amplitude: A1.3/RV15.4/LV24.4 mV Pacing impedance: A668/RV495/LV437 Ohms Shock impedance: RV 84 Ohms Pacing a/RV/GIFTS OFFICER: 54/94/96% Atrial burden: 5.6% Had atrial fibrillation with rapid response beginning at midnight of June 07, 2025 Normal function SHONDA WALSH MD Jun 09, 2025 09:55
[2025-06-09] MEDS ORDERED: AMIODARONE HCL 200 MG TAB PO SCH (10:00)
--- NOTE | 2025-06-09 10:14 | DVHPN2 ---
Progress Note Date Seen: Jun 09, 2025 Medical Necessity Reason Pt with a Central, PICC or Fol: No Subjective Patient reports: No new complaints Other Systems: Patient seen and examined by myself today in follow-up Objective vital signs Vital Sign Date Time Temp Pulse Resp B/P (MAP) Pulse Ox O2 Delivery O2 Flow Rate FiO2 06/09/25 09:14 74 20 111/49 06/09/25 08:38 97 Room Air* 0 21 06/09/25 08:00 99.7 99.7 Total Intake and Output 06/08/25 06/08/25 06/09/25 15:00 23:00 07:00 Intake Total 33.33 ml 178.839 ml 145.450 ml Output Total 350 ml Balance 33.33 ml -171.161 ml 145.450 ml medications Current Medications Medications Dose Ordered Sig/Yoni Route Start Time Stop Time Status Last Admin Dose Admin Norepinephrine Bitartrate 250 ml @ 3.75 mls/hr Q24H IV 06/07/25 10:15 06/08/25 06:30 3.75 MLS/HR Acetaminophen 650 mg Q6HP PRN PO 06/07/25 17:00 06/09/25 05:20 650 MG Nitroglycerin 0.4 mg Q5MINP PRN SL 06/07/25 17:00 Hold Morphine Sulfate 2 mg Q30M PRN IV 06/07/25 17:00 06/09/25 08:31 2 MG Digoxin 0.125 mg DAILY PO 06/08/25 10:00 06/08/25 09:34 0.125 MG Furosemide 20 mg DAILY PO 06/08/25 10:00 06/08/25 09:35 20 MG Sotalol HCl 40 mg Q24H PO 06/07/25 18:00 Hold Topiramate 100 mg HS PO 06/07/25 18:00 06/08/25 22:33 100 MG Potassium Chloride 10 meq DAILY PO 06/08/25 10:00 Atorvastatin Calcium 20 mg HS PO 06/07/25 22:00 06/08/25 22:33 20 MG Diphenhydramine HCl 25 mg Q4HP PRN IV 06/07/25 22:30 06/07/25 22:46 25 MG Carvedilol 12.5 mg BID PO 06/08/25 10:00 Hold Morphine Sulfate 2 mg Q4HPRN PRN IV 06/08/25 15:30 06/09/25 00:29 2 MG Acetaminophen/ Hydrocodone Bitart 1 tab Q6HP PRN PO 06/08/25 15:30 06/08/25 22:34 1 TAB Heparin Sodium/ Dextrose 250 ml @ 14 mls/hr [id number] IV 06/09/25 01:30 06/09/25 07:09 14 MLS/HR Amiodarone HCl 200 mg DAILY PO 06/09/25 10:00 Examination: LUNGS:Normal, CVS:Normal, MSK:Normal laboratory and microbiology Laboratory Tests 06/09/25 08:51 06/09/25 05:30 Test 06/09/25 05:30 Range/Units Serum Glucose 105 74-106 mg/dL Problem List/Assessment/Plan Problem List/Assessment/Plan Acute kidney injury superimposed Chronic Kidney Disease secondary hemodynamic mediated, FeNa <1% Nonischemic cardiomyopathy with decompensated heart failure ejection fraction less than 12% Methamphetamine abuse Cardiogenic shock due to SVT NSTEMI Hypokalemia Recommendations Kidney function is improving Strict I&Os I agree with gentle diuresis Kidney ultrasound reported right nonobstructing 6 mm stone IV pressor for pressure support KCL replacement Cardiology consult We will continue to follow up Plan discussed with: Patient JAJA CADNEA MD Jun 09, 2025 10:14
[2025-06-09] MEDS: AMIODARONE HCL 200 MG TAB PO SCH (12:34)
[2025-06-09 15:22] LABS: INR 1.03 (0.9-1.15); Prothrombin Time 10.9 sec (9.3-11.8)
[2025-06-09 15:24] LABS: Partial Thromboplastin Time 74.6 SEC (24.5-34.5)
--- NOTE | 2025-06-09 15:41 | CONS ---
Pharmacy Clinical Information: HEPARIN DRIP @1400 aPTT 74.6 - NO BOLUS, NO CHANGE NEXT APTT SCHEDULED @1999 PER RX PROTOCOL CONFIRMED AND READ BACK WITH RN [facility] RES[facility] Jun 09, 2025 15:41
--- NOTE | 2025-06-09 16:33 | DVHPN2 ---
Subjective Feelings worse today; continues to have generalized weakness and lightheadedness Reviewed: Care Plan, H&P, Labs, Medications, Previous Orders, Radiology, Other (Consultations) Changes from previous H/P or p: Changes Gastrointestinal: Nausea Objective Vitals Vital Signs Date Time Temp Pulse Resp B/P (MAP) Pulse Ox O2 Delivery O2 Flow Rate FiO2 06/09/25 15:53 73 24 117/82 06/09/25 11:45 95 06/09/25 08:38 Room Air* 0 21 06/09/25 08:00 99.7 99.7 Intake/Output Intake and Output 06/09/25 07:00 Intake Total 357.619 ml Output Total 350 ml Balance 7.619 ml Intake IV Total 357.619 ml Output Urine Total 350 ml General Appearance: Alert, Oriented X3, Cooperative, No acute distress HEENT: Atraumatic Lungs: Clear to auscultation, Normal air movement Cardiovascular: Other (Irregularly irregular rhythm; ICD in place) Abdomen: Normal bowel sounds, Soft, No tenderness Extremities: Other (Pitting edema) Neuro: Normal speech, Cranial nerves 3-12 NL Psych/Mental Status: Mental status NL, Mood NL Medications Current Medications Medications Dose Ordered Sig/Yoni Route Start Time Stop Time Status Last Admin Dose Admin Norepinephrine Bitartrate 250 ml @ 3.75 mls/hr Q24H IV 06/07/25 10:15 06/09/25 10:46 9.375 MLS/HR Acetaminophen 650 mg Q6HP PRN PO 06/07/25 17:00 06/09/25 05:20 650 MG Nitroglycerin 0.4 mg Q5MINP PRN SL 06/07/25 17:00 Hold Morphine Sulfate 2 mg Q30M PRN IV 06/07/25 17:00 06/09/25 08:31 2 MG Digoxin 0.125 mg DAILY PO 06/08/25 10:00 06/09/25 10:41 0.125 MG Furosemide 20 mg DAILY PO 06/08/25 10:00 06/09/25 10:41 20 MG Sotalol HCl 40 mg Q24H PO 06/07/25 18:00 Hold Topiramate 100 mg HS PO 06/07/25 18:00 06/08/25 22:33 100 MG Potassium Chloride 10 meq DAILY PO 06/08/25 10:00 06/09/25 10:42 10 MEQ Atorvastatin Calcium 20 mg HS PO 06/07/25 22:00 06/08/25 22:33 20 MG Diphenhydramine HCl 25 mg Q4HP PRN IV 06/07/25 22:30 06/07/25 22:46 25 MG Carvedilol 12.5 mg BID PO 06/08/25 10:00 Hold Morphine Sulfate 2 mg Q4HPRN PRN IV 06/08/25 15:30 06/09/25 15:53 2 MG Acetaminophen/ Hydrocodone Bitart 1 tab Q6HP PRN PO 06/08/25 15:30 06/08/25 22:34 1 TAB Heparin Sodium/ Dextrose 250 ml @ 14 mls/hr [id number] IV 06/09/25 01:30 06/09/25 07:09 14 MLS/HR Amiodarone HCl 200 mg BID PO 06/09/25 10:15 06/09/25 12:34 200 MG Laboratory Results Laboratory Tests 06/09/25 05:30 06/09/25 08:51 Chemistry Test 06/09/25 05:30 Calcium Level 8.4 mg/dL (8.7-10.4) L Coagulation Test 06/08/25 17:04 06/09/25 00:13 06/09/25 07:44 06/09/25 14:00 Prothrombin Time 10.9 sec (9.3-11.8) 10.9 sec (9.3-11.8) 11.1 sec (9.3-11.8) 10.9 sec (9.3-11.8) Prothrombin Time INR 1.03 (0.9-1.15) 1.03 (0.9-1.15) 1.05 (0.9-1.15) 1.03 (0.9-1.15) Activated Partial Thromboplast Time 38.4 SEC (24.5-34.5) H 48.1 SEC (24.5-34.5) H 71.7 SEC (24.5-34.5) *H 74.6 SEC (24.5-34.5) *H Urinalysis Test 06/08/25 16:42 Urine Color Light-yellow (Yellow) Urine Clarity Clear (Clear) Urine pH 5.5 (5.0-9.0) Urine Specific [place] 1.014 (1.001-1.035) Urine Protein Negative (Negative) Urine Ketones Negative (Negative) Urine Blood Negative /uL (Negative) Urine Nitrite Negative (Negative) Urine Bilirubin Negative (Negative) Urine Urobilinogen Normal mg/dL (Negative) Urine Leukocyte Esterase Negative /uL (Negative) Urine RBC None seen /hpf (0 - 3) Urine Microscopic WBC 1 /HPF (0-3) Urine Squamous Epithelial Cells None seen /hpf (<5) Urine Bacteria None seen /hpf (None Seen) Urine Creatinine 88.19 mg/dL (30.0-125.0) Urine Protein/Creatinine Ratio 0.31 Urine Sodium 14 mmol/L (40-220) L Urine Glucose 4+ mg/dL (Normal) H Urine Total Protein 27.5 mg/dL (1-14) H Labs and/or images reviewed: Labs reviewed by me, Image(s) reviewed by me Assessment/Plan Assessment/Plan A 60-year-old male patient; multiple comorbidities; who presented to the emergency department with lightheadedness with generalized weakness. New onset AFib with RVR Cardiogenic shock causing lightheadedness with generalized weakness Acute on chronic systolic heart failure NSTEMI; type 2 MO; demand ischemia due to above SATHISH on CKD; vasomotor nephropathy Nonischemic cardiomyopathy Polysubstance use disorder including methamphetamine/marijuana/tobacco Leukocytosis; most likely reactive; resolved Peripheral artery disease; no active issues History of hyperparathyroidism; no active issues Pulmonary hypertension, type 2 Chronic migraines Hypokalemia; resolved Dyslipidemia On heparin infusion and amiodarone infusion Reviewed available lab work, imaging study, and echocardiogram Continue and adjust IV vasopressors as indicated; increasing requirement of norepinephrine; discussed placement of central line with the patient; did not make a decision yet Cardiology and Nephrology are following Avoid nephrotoxic agents Telemetry Continue statin and digoxin Replace and correct electrolytes as needed Continue topiramate for migraines along with pain management as indicated Counseled the patient for 22 minutes on methamphetamine/marijuana/tobacco use cessation; 12 minutes exclusively for tobacco use cessation Avoid nephrotoxic agents Strict inputs/outputs monitoring; daily weight Continue close monitoring Goals of care rediscussed with the patient for 22 minutes; continues to be full code 60 minutes of critical care time Late Entry. This medical document was created using an electronic medical record system with computerized dictation system. Although this document has been carefully reviewed, there might still be some phonetic and typographical errors. These areas are purely typographical due to imperfections of the software programs, and do not reflect any compromise in the patient's medical care. Plan discussed with: Patient, Other (Nurse) Date of Service: Jun 09, 2025 Billing Provider: ELENA POSADA MD Common Visit Codes: 56896-AAPVBVSU CARE 30-74 MIN (60 minutes) Secondary Visit Codes: 18074-CYGUPHSR CARE PLAN 30 MINUTES (22 minutes) ELENA POSADA MD Jun 09, 2025 16:33
[2025-06-09 20:36] LABS: INR 1.02 (0.9-1.15); Prothrombin Time 10.8 sec (9.3-11.8)
[2025-06-09 20:39] VITALS: PULSE 90; RESP 16; O2SAT 97
[2025-06-09 20:45] LABS: Partial Thromboplastin Time 73.5 SEC (24.5-34.5)
[2025-06-09 23:00] VITALS: PULSE 70; RESP 20; O2SAT 98
--- NOTE | 2025-06-10 08:46 | DVHPN2 ---
Progress Note Date Seen: Jun 10, 2025 Medical Necessity Reason Pt with a Central, PICC or Fol: No Subjective Patient reports: No new complaints Other Systems: Patient seen and examined by myself today in follow-up Objective vital signs Vital Sign Date Time Temp Pulse Resp B/P (MAP) Pulse Ox O2 Delivery O2 Flow Rate FiO2 06/10/25 08:00 85 06/10/25 07:00 17 106/83 (91) 06/10/25 06:15 99 06/09/25 23:00 Nasal Cannula* 2 28 06/09/25 23:00 98.4 98.4 Total Intake and Output 06/09/25 06/09/25 06/10/25 15:00 23:00 07:00 Intake Total 177.625 ml 37.375 ml 70 ml Balance 177.625 ml 37.375 ml 70 ml medications Current Medications Medications Dose Ordered Sig/Yoni Route Start Time Stop Time Status Last Admin Dose Admin Norepinephrine Bitartrate 250 ml @ 3.75 mls/hr Q24H IV 06/07/25 10:15 06/09/25 10:46 9.375 MLS/HR Acetaminophen 650 mg Q6HP PRN PO 06/07/25 17:00 06/09/25 23:12 650 MG Nitroglycerin 0.4 mg Q5MINP PRN SL 06/07/25 17:00 Hold Morphine Sulfate 2 mg Q30M PRN IV 06/07/25 17:00 06/09/25 08:31 2 MG Digoxin 0.125 mg DAILY PO 06/08/25 10:00 06/09/25 10:41 0.125 MG Furosemide 20 mg DAILY PO 06/08/25 10:00 06/09/25 10:41 20 MG Sotalol HCl 40 mg Q24H PO 06/07/25 18:00 Hold Topiramate 100 mg HS PO 06/07/25 18:00 06/09/25 23:06 100 MG Potassium Chloride 10 meq DAILY PO 06/08/25 10:00 06/09/25 10:42 10 MEQ Atorvastatin Calcium 20 mg HS PO 06/07/25 22:00 06/09/25 23:05 20 MG Diphenhydramine HCl 25 mg Q4HP PRN IV 06/07/25 22:30 06/07/25 22:46 25 MG Carvedilol 12.5 mg BID PO 06/08/25 10:00 Hold Morphine Sulfate 2 mg Q4HPRN PRN IV 06/08/25 15:30 06/09/25 23:05 2 MG Acetaminophen/ Hydrocodone Bitart 1 tab Q6HP PRN PO 06/08/25 15:30 06/10/25 03:50 1 TAB Amiodarone HCl 200 mg BID PO 06/09/25 10:15 06/09/25 23:05 200 MG Apixaban 5 mg BID PO 06/10/25 10:00 Examination: LUNGS:Normal, CVS:Normal, MSK:Normal laboratory and microbiology Laboratory Tests 06/09/25 08:51 06/09/25 05:30 Test 06/09/25 05:30 Range/Units Serum Glucose 105 74-106 mg/dL Problem List/Assessment/Plan Problem List/Assessment/Plan Acute kidney injury superimposed Chronic Kidney Disease secondary hemodynamic mediated, FeNa <1% Nonischemic cardiomyopathy with decompensated heart failure ejection fraction less than 12% Methamphetamine abuse Cardiogenic shock due to SVT NSTEMI Hypokalemia Recommendations Kidney function is improving Strict I&Os I agree with gentle diuresis Kidney ultrasound reported right nonobstructing 6 mm stone Patient will need a referral for stone workup as outpatient IV pressor for pressure support KCL replacement Cardiology consult We will continue to follow up Plan discussed with: Patient JAJA CADENA MD Jun 10, 2025 08:46
[2025-06-10 09:01] LABS: Hematocrit 39.9 % (41.0-53.0); Hemoglobin 13.7 g/dL (13.5-17.5); Mean Corpuscular Hemoglobin 31.4 pg (28.0-32.0); Mean Corpuscular Volume 91.1 fL (80.0-100.0); Nucleated Red Blood Cells % 0.4 %
[2025-06-10 09:11] LABS: Anion Gap 7 (5-15); Carbon Dioxide 26 mmol/L (20-31); Chloride 105 mmol/L (98-107); Potassium 4.3 mmol/L (3.5-5.1); Sodium 138 mmol/L (136-145)
[2025-06-10 09:12] LABS: Calcium 8.8 mg/dL (8.7-10.4)
[2025-06-10 09:13] LABS: INR 1.03 (0.9-1.15); Partial Thromboplastin Time 54.7 SEC (24.5-34.5); Prothrombin Time 10.9 sec (9.3-11.8)
[2025-06-10 09:17] LABS: BUN/Creatinine Ratio 14.5 (10.0-20.0); Glucose 97 mg/dL (74-106); Magnesium 2.1 mg/dL (1.6-2.6)
[2025-06-10 09:19] LABS: Blood Urea Nitrogen 23 mg/dL (9-23)
--- NOTE | 2025-06-10 10:09 | DVHPN2 ---
Progress Note - Dictate Date Seen: Jun 10, 2025 Medical Necessity Reason Pt with a Central, PICC or Fol: No vital signs Vital Sign Date Time Temp Pulse Resp B/P (MAP) Pulse Ox O2 Delivery O2 Flow Rate FiO2 06/10/25 08:00 98.1 70 15 122/79 (93) 98.1 06/10/25 06:15 99 06/09/25 23:00 Nasal Cannula* 2 28 Total Intake and Output 06/09/25 06/09/25 06/10/25 15:00 23:00 07:00 Intake Total 177.625 ml 37.375 ml 70 ml Balance 177.625 ml 37.375 ml 70 ml medications Current Medications Medications Dose Ordered Sig/Yoni Route Start Time Stop Time Status Last Admin Dose Admin Norepinephrine Bitartrate 250 ml @ 3.75 mls/hr Q24H IV 06/07/25 10:15 06/09/25 10:46 9.375 MLS/HR Acetaminophen 650 mg Q6HP PRN PO 06/07/25 17:00 06/09/25 23:12 650 MG Nitroglycerin 0.4 mg Q5MINP PRN SL 06/07/25 17:00 Hold Morphine Sulfate 2 mg Q30M PRN IV 06/07/25 17:00 06/09/25 08:31 2 MG Digoxin 0.125 mg DAILY PO 06/08/25 10:00 06/09/25 10:41 0.125 MG Furosemide 20 mg DAILY PO 06/08/25 10:00 06/09/25 10:41 20 MG Sotalol HCl 40 mg Q24H PO 06/07/25 18:00 Hold Topiramate 100 mg HS PO 06/07/25 18:00 06/09/25 23:06 100 MG Potassium Chloride 10 meq DAILY PO 06/08/25 10:00 06/09/25 10:42 10 MEQ Atorvastatin Calcium 20 mg HS PO 06/07/25 22:00 06/09/25 23:05 20 MG Diphenhydramine HCl 25 mg Q4HP PRN IV 06/07/25 22:30 06/07/25 22:46 25 MG Carvedilol 12.5 mg BID PO 06/08/25 10:00 Hold Morphine Sulfate 2 mg Q4HPRN PRN IV 06/08/25 15:30 06/09/25 23:05 2 MG Acetaminophen/ Hydrocodone Bitart 1 tab Q6HP PRN PO 06/08/25 15:30 06/10/25 03:50 1 TAB Amiodarone HCl 200 mg BID PO 06/09/25 10:15 06/09/25 23:05 200 MG Apixaban 5 mg BID PO 06/10/25 10:00 laboratory and microbiology Laboratory Tests 06/10/25 08:21 Test 06/10/25 08:21 Range/Units Serum Glucose 97 74-106 mg/dL Assessment/Plan Patient is a 60-year-old gentleman who presented to the hospital with generalized weakness shortness of breath/generalized body pain including chest discomfort. These problem slowly worsened and he decided to come to the hospital. He is known to our practice (cardiology) from before and outside. For his cardiac care, patient also goes to [facility] [place]. Around few weeks ago, [facility] [place] cardiology stopped his sotalol/ambrisentan/sildenafil and started him on Farxiga. It is of note that the patient does have history of SVT/NSVT. Does have history of nonischemic cardiomyopathy and systolic heart failure. Does have BiV-ICD (Biotronik) from before. Previously was on sotalol for repeated NSVTs. While being evaluated emergency room, the patient was found to be hypotensive with worsened kidney function. His troponin was also elevated. He has been started on Levophed. It is of note that the patient does have chronically elevated troponin which was previously assessed to reflect demand physiology in the patient with systolic heart failure. He has previously been assessed to have type 2 pulmonary hypertension. His history includes methamphetamine/cannabinoid abuse (he mentions use of amphetamine around a week prior to presentation). Positive JVD. Mucosa is pink and wet. No carotid bruit. No goiter. Scattered rhonchi and crackles in the lungs is heard. Cardiac: Systolic murmur 3/6 in the apex and left sternal borders heard. Abdomen is soft. Bowel sound is positive. Extremities reveal 2+ edema. Dorsalis pedis is 2+ bilateral. There is no gross lateralized neurologic deficit. Past medical history includes systolic heart failure, nonischemic cardiomyopathy, SVT, NSVT, type 2 pulmonary hypertension, hypertension, chronically elevated troponin (troponin was 680 -700 in January 2024/[facility]), kidney stones, hyperlipidemia, status post BiV-ICD (Biotronik) implantation, peripheral artery disease, diverticular disease, COPD, old history of hepatitis-B, old history of syphilis (as per patient: Patient completed treatment years ago), history of hyperparathyroidism and status post hernia repair. Does have history of methamphetamine/cannabinoid abuse. Echocardiogram of 2018 had reported ejection fraction of less than 20%, severe TR/MR, left ventricular enlargement and severe pulmonary artery hypertension Echocardiogram of January 2025 had reported ejection fraction of less than 20% Echocardiogram of March 2025 (performed in [facility]) reported ejection fraction of 10-15% Left heart catheterization of August 23, 2023 had revealed normal coronaries, nonischemic cardiomyopathy, ejection fraction of 20% and left ventricular end- diastolic pressure of 20 mm Hg WBC: 11.6 - 8.3 - 6.8 Creatinine: 2.58 - 2.38 - 1.72 Potassium: 3.2 - 3.2 - 4.0 Magnesium: 2.0 Troponin (high sensitive): 546 - 581 - 608 Digoxin level: 0.44 D-dimer: 0.38 (wnl) Urine tox screen was positive for Opiates and Amphetamine Renal/Bladder Ultrasound revealed: IMPRESSION: 1. No hydronephrosis. 2. Right nephrolithiasis. Chest x-ray revealed: IMPRESSION: Cardiomegaly with pulmonary vascular congestion. EKG on arrival revealed wide complex rhythms with area of irregularity questioning AFib versus V-tach Tele reveals sinus rhythm, occasions of ventricular paced rhythm Echocardiogram revealed: Left ventricle: Left ventricle was dilated with significantly reduced systolic function. LVEF was 15%. Diffuse hypokinesis of left ventricle was seen. Increased filling pressures of left ventricle was observed. Right ventricle was dilated. Both atria were dilated. Pacing wire was seen in right-sided chambers. Aortic valve was trileaflet. There was no aortic insufficiency/stenosis. There was [id number] mitral regurgitation. There was mild tricuspid regurgitation. Pulmonary valve did not reveal any insufficiency. Right ventricle systolic pressure was assessed at 50 mm Hg. There was no pericardial effusion. IVC was normal-sized with reduced respiratory variation. Biotronik Bi V ICD interrogation: Battery status: Middle of service (MOS2); Remaining battery capacity: 15%; Battery: Approximately 1 year to replacement; DDD-CLS/BiV: 65/130; Sensing amplitude: A1.3/RV15.4/LV24.4 mV; Pacing impedance: A668/RV495/LV437 Ohms; Shock impedance: RV 84 Ohms; Pacing a/RV/WEED BURNER: 54/94/96%; Atrial burden: 5.6%; Had atrial fibrillation with rapid response beginning at midnight of June 07, 2025; Normal function Patient is a 60-year-old gentleman with history of advanced nonischemic cardiomyopathy/systolic heart failure who presented with generalized weakness, hypotension and generalized body pain. Did have some chest pains. Troponin has been flat and somehow elevated. Does have old history of abnormal/elevated troponin. Has previously been evaluated to have chronically elevated troponin secondary to demand physiology in a patient with nonischemic cardiomyopathy. Had normal coronaries in August 2023. ACS is not considered at this point. Does have history of substance abuse which could have contributed to the clinical picture. His medications have been recently changed and sotalol was stopped. Does have history of NSVT and stopping Sotalol could have contributed to the clinical picture. Is found to have worsened kidney function tests compared to his baseline and SATHISH secondary to hypotension/cardiorenal could be contributing to the clinical picture. Is found to have atrial fibrillation in BiV ICD interrogation. Atrial fibrillation is a new finding for the patient. Recognizing comorbidities, CHADS-VASc score is elevated and long-term full anticoagulation is advised Acute on chronic systolic heart failure Hypotension Abnormal troponin, demand physiology SATHISH Nonischemic cardiomyopathy Systolic heart failure Methamphetamine abuse History of peripheral artery disease History of hyperparathyroidism Type 2 pulmonary hypertension Proteinuria New onset AFib Cardiac suggestion for management: Manage in Tele Follow-up electrolytes and kidney function tests and correct abnormalities PO Amiodarone Atrial fibrillation is a new finding for the patient. Recognizing comorbidities, CHADS-VASc score is elevated and long-term full anticoagulation is advised. You can consider Eliquis Nephrology follow up Further evaluation and management depends on the above and clinical course A total of 75 minutes was spent reviewing the patient record, examining the patient, making a diagnostic and therapeutic plan, discussing this plan with medical personnel, following up on diagnostic studies and following the patient for clinical stability excluding any and all procedures. At least 50% of this time was spent in direct, [id number] contact. Thank you for allowing me to participate in this patient's care. Further recommendations will depend on patient's clinical course. Please do not hesitate to contact me if you have any questions or concerns. This medical document was created using electronic medical record system with [employer] computerized dictation system. Although this document has been carefully reviewed, there may still be some phonetic and typographical errors. These areas are purely typographical due to the imperfection of the software programs, and do not reflect any compromise in the patient's medical care. Plan discussed with: Patient, Other (nurse) SHONDA WALSH MD Jun 10, 2025 10:09
[2025-06-10 10:30] VITALS: BP 123/100; PULSE 64; RESP 20; TEMP 97.6; O2SAT 97
[2025-06-10] MEDS: APIXABAN 5 MG TAB PO SCH (11:50)
--- NOTE | 2025-06-10 11:55 | DVHPN2 ---
Subjective Complaining of chest pain; decreasing generalized weakness and lightheadedness Reviewed: Care Plan, H&P, Labs, Medications, Previous Orders, Radiology, Other (Consultations) Changes from previous H/P or p: Changes Gastrointestinal: Nausea Objective Vitals Vital Signs Date Time Temp Pulse Resp B/P (MAP) Pulse Ox O2 Delivery O2 Flow Rate FiO2 06/10/25 11:51 89 06/10/25 11:50 117/89 06/10/25 08:00 98.1 15 98.1 06/10/25 06:15 99 06/09/25 23:00 Nasal Cannula* 2 28 Intake/Output Intake and Output 06/10/25 07:00 Intake Total 285.000 ml Balance 285.000 ml Intake IV Total 285.000 ml General Appearance: Alert, Oriented X3, Cooperative, mild distress HEENT: Atraumatic Lungs: Clear to auscultation, Normal air movement Cardiovascular: Other (Irregularly irregular rhythm; ICD in place) Abdomen: Normal bowel sounds, Soft, No tenderness Extremities: Other (Pitting edema) Neuro: Normal speech, Cranial nerves 3-12 NL Psych/Mental Status: Mental status NL, Mood NL Medications Current Medications Medications Dose Ordered Sig/Yoni Route Start Time Stop Time Status Last Admin Dose Admin Norepinephrine Bitartrate 250 ml @ 3.75 mls/hr Q24H IV 06/07/25 10:15 06/09/25 10:46 9.375 MLS/HR Acetaminophen 650 mg Q6HP PRN PO 06/07/25 17:00 06/09/25 23:12 650 MG Nitroglycerin 0.4 mg Q5MINP PRN SL 06/07/25 17:00 Hold Morphine Sulfate 2 mg Q30M PRN IV 06/07/25 17:00 06/09/25 08:31 2 MG Digoxin 0.125 mg DAILY PO 06/08/25 10:00 06/10/25 11:51 0.125 MG Furosemide 20 mg DAILY PO 06/08/25 10:00 06/10/25 11:50 20 MG Sotalol HCl 40 mg Q24H PO 06/07/25 18:00 Hold Topiramate 100 mg HS PO 06/07/25 18:00 06/09/25 23:06 100 MG Potassium Chloride 10 meq DAILY PO 06/08/25 10:00 06/10/25 11:51 10 MEQ Atorvastatin Calcium 20 mg HS PO 06/07/25 22:00 06/09/25 23:05 20 MG Diphenhydramine HCl 25 mg Q4HP PRN IV 06/07/25 22:30 06/07/25 22:46 25 MG Carvedilol 12.5 mg BID PO 06/08/25 10:00 Hold Morphine Sulfate 2 mg Q4HPRN PRN IV 06/08/25 15:30 06/09/25 23:05 2 MG Acetaminophen/ Hydrocodone Bitart 1 tab Q6HP PRN PO 06/08/25 15:30 06/10/25 03:50 1 TAB Amiodarone HCl 200 mg BID PO 06/09/25 10:15 06/10/25 11:48 200 MG Apixaban 5 mg BID PO 06/10/25 10:00 06/10/25 11:50 5 MG Laboratory Results Laboratory Tests 06/10/25 08:21 Chemistry Test 06/10/25 08:21 Calcium Level 8.8 mg/dL (8.7-10.4) Magnesium Level 2.1 mg/dL (1.6-2.6) Coagulation Test 06/09/25 14:00 06/09/25 19:52 06/10/25 08:21 Prothrombin Time 10.9 sec (9.3-11.8) 10.8 sec (9.3-11.8) 10.9 sec (9.3-11.8) Prothrombin Time INR 1.03 (0.9-1.15) 1.02 (0.9-1.15) 1.03 (0.9-1.15) Activated Partial Thromboplast Time 74.6 SEC (24.5-34.5) *H 73.5 SEC (24.5-34.5) *H 54.7 SEC (24.5-34.5) H Urinalysis Test 06/08/25 16:42 Urine Color Light-yellow (Yellow) Urine Clarity Clear (Clear) Urine pH 5.5 (5.0-9.0) Urine Specific [place] 1.014 (1.001-1.035) Urine Protein Negative (Negative) Urine Ketones Negative (Negative) Urine Blood Negative /uL (Negative) Urine Nitrite Negative (Negative) Urine Bilirubin Negative (Negative) Urine Urobilinogen Normal mg/dL (Negative) Urine Leukocyte Esterase Negative /uL (Negative) Urine RBC None seen /hpf (0 - 3) Urine Microscopic WBC 1 /HPF (0-3) Urine Squamous Epithelial Cells None seen /hpf (<5) Urine Bacteria None seen /hpf (None Seen) Urine Creatinine 88.19 mg/dL (30.0-125.0) Urine Protein/Creatinine Ratio 0.31 Urine Sodium 14 mmol/L (40-220) L Urine Glucose 4+ mg/dL (Normal) H Urine Total Protein 27.5 mg/dL (1-14) H Labs and/or images reviewed: Labs reviewed by me, Image(s) reviewed by me Assessment/Plan Assessment/Plan A 60-year-old male patient; multiple comorbidities; who presented to the emergency department with lightheadedness with generalized weakness. Chest pain; ACS ruled out; most likely related to acute on chronic systolic heart failure; repeat EKG with no ischemic changes and repeated troponin trending down Acute hypoxic respiratory failure due to pulmonary vascular congestion New onset AFib with RVR Cardiogenic shock causing lightheadedness with generalized weakness; currently off IV vasopressors Acute on chronic systolic heart failure NSTEMI; type 2 OK; demand ischemia due to above SATHISH on CKD; vasomotor nephropathy Nonischemic cardiomyopathy s/p ICD Polysubstance use disorder including methamphetamine/marijuana/tobacco Leukocytosis; most likely reactive; resolved Peripheral artery disease; no active issues History of hyperparathyroidism; no active issues; PTH within normal limit Pulmonary hypertension, type 2 Chronic migraines Hypokalemia; resolved Dyslipidemia Anxiety Cardiology ordered one dose of IV furosemide in the setting of pulmonary vascular congestion and acute hypoxic respiratory failure Started on oxygen therapy and to continue as indicated Heparin infusion switch to apixaban by Cardiology Was on amiodarone infusion; no oral amiodarone per Cardiology To continue pain management for chest pain as indicated Reviewed available lab work, imaging study including repeat chest x-ray, and echocardiogram To restart IV vasopressors if indicated Cardiology and Nephrology are following Avoid nephrotoxic agents Telemetry Continue statin and digoxin Replace and correct electrolytes as needed Continue topiramate for migraines along with pain management as indicated Counseled the patient on methamphetamine/marijuana/tobacco use cessation Avoid nephrotoxic agents Strict inputs/outputs monitoring; daily weight Xanax as needed for anxiety Continue close monitoring 55 minutes of critical care time Late Entry. This medical document was created using an electronic medical record system with computerized dictation system. Although this document has been carefully reviewed, there might still be some phonetic and typographical errors. These areas are purely typographical due to imperfections of the software programs, and do not reflect any compromise in the patient's medical care. Plan discussed with: Patient, Other (Nurse) Date of Service: Jun 10, 2025 Billing Provider: ELENA POSADA MD Common Visit Codes: [id number] CARE 30-74 MIN (55 minutes) ELENA POSADA MD Jun 10, 2025 11:55
[2025-06-10 13:00] VITALS: BP 136/86; PULSE 66; RESP 20; TEMP 97.9; O2SAT 97
--- NOTE | 2025-06-10 14:16 | DVH ---
CHEST RADIOGRAPH Indication: shortness of breath Technique: Single frontal view of the chest was obtained Comparison: XY CHEST PORTABLE on DOS: 06/07/25, XR CHEST 1 VIEW on DOS: 11/05/23, XY CHEST PORTABLE on DO S: 06/07/25 FINDINGS: Lines and tubes: A pacer is noted. Cardiomediastinal silhouette: Enlarged Pulmonary vasculature: Prominent Lung expansion: normal Lung airspace: normal Lung interstitium: normal Pleura: normal Pneumothorax: no Bones: Unremarkable Other: no IMPRESSION: Cardiomegaly with pulmonary vascular congestion.
[2025-06-10] MEDS: FUROSEMIDE 40 MG/4 ML VIAL IV ONE (14:27)
[2025-06-10] MEDS: LORazepam 2MG/ML-1ML VIAL IV ONE (15:44)
[2025-06-10 15:57] VITALS: O2SAT 96
[2025-06-10 17:00] VITALS: BP 117/85; PULSE 63; RESP 19; TEMP 98; O2SAT 96
[2025-06-10 20:00] VITALS: PULSE 72; PULSE 84; RESP 18; O2SAT 97
[2025-06-10 21:00] VITALS: BP 113/72; PULSE 53; RESP 19; TEMP 99.6; O2SAT 96
[2025-06-10] MEDS: FUROSEMIDE 40 MG/4 ML VIAL IV SCH (21:46)
[2025-06-11] VITALS (8 sets, daily range): BP systolic 107–141; BP diastolic 74–87; PULSE 53–85; RESP 16–20; TEMP 97.7–98.9; O2SAT 90–100
[2025-06-11] MEDS: CARVEDILOL 12.5 MG TAB PO SCH
[2025-06-11 00:03] LABS: Urine Protein, UAD TRACE (Negative)
[2025-06-11] MEDS: ALBUTEROL SULF 2.5 MG/0.5ML(0.5%) NEB SOLN NEB ONE (05:37)
[2025-06-11] MEDS: ALBUTEROL SULF 2.5 MG/0.5ML(0.5%) NEB SOLN ONE (05:38)
[2025-06-11] MEDS: IPRATROPIUM BROM 0.5 MG/2.5ML INH SOL ONE (05:38)
[2025-06-11] MEDS: IPRATROPIUM BROM 0.5 MG/2.5ML INH SOL NEB ONE (05:38)
--- NOTE | 2025-06-11 06:23 | DVHPN2 ---
Progress Note - Dictate Date Seen: Jun 11, 2025 Medical Necessity Reason Pt with a Central, PICC or Fol: No vital signs Vital Sign Date Time Temp Pulse Resp B/P (MAP) Pulse Ox O2 Delivery O2 Flow Rate FiO2 06/11/25 05:56 76 18 121/76 06/11/25 05:36 100 06/11/25 05:26 Nasal Cannula* 5 40 06/11/25 05:00 98.9 98.9 Total Intake and Output 06/10/25 06/10/25 06/11/25 15:00 23:00 07:00 Intake Total 250 ml 600 ml Output Total 620 ml Balance 250 ml -20 ml medications Current Medications Medications Dose Ordered Sig/Yoni Route Start Time Stop Time Status Last Admin Dose Admin Acetaminophen 650 mg Q6HP PRN PO 06/07/25 17:00 06/09/25 23:12 650 MG Nitroglycerin 0.4 mg Q5MINP PRN SL 06/07/25 17:00 Hold Morphine Sulfate 2 mg Q30M PRN IV 06/07/25 17:00 06/11/25 05:56 2 MG Digoxin 0.125 mg DAILY PO 06/08/25 10:00 06/10/25 11:51 0.125 MG Topiramate 100 mg HS PO 06/07/25 18:00 06/10/25 23:07 100 MG Potassium Chloride 10 meq DAILY PO 06/08/25 10:00 06/10/25 11:51 10 MEQ Atorvastatin Calcium 20 mg HS PO 06/07/25 22:00 06/10/25 23:07 20 MG Diphenhydramine HCl 25 mg Q4HP PRN IV 06/07/25 22:30 06/07/25 22:46 25 MG Carvedilol 12.5 mg BID PO 06/08/25 10:00 06/11/25 00:00 12.5 MG Morphine Sulfate 2 mg Q4HPRN PRN IV 06/08/25 15:30 06/10/25 23:02 2 MG Acetaminophen/ Hydrocodone Bitart 1 tab Q6HP PRN PO 06/08/25 15:30 06/11/25 04:44 1 TAB Amiodarone HCl 200 mg BID PO 06/09/25 10:15 06/10/25 23:08 200 MG Apixaban 5 mg BID PO 06/10/25 10:00 06/10/25 23:07 5 MG Lorazepam 0.5 mg Q4HP PRN PO 06/10/25 14:45 Furosemide 40 mg BIDD IV 06/10/25 20:15 06/11/25 05:15 40 MG laboratory and microbiology Laboratory Tests 06/10/25 08:21 Test 06/10/25 08:21 Range/Units Serum Glucose 97 74-106 mg/dL Assessment/Plan Patient is a 60-year-old gentleman who presented to the hospital with generalized weakness shortness of breath/generalized body pain including chest discomfort. These problem slowly worsened and he decided to come to the hospital. He is known to our practice (cardiology) from before and outside. For his cardiac care, patient also goes to [place]. Around few weeks ago, [place] cardiology stopped his sotalol/ambrisentan/sildenafil and started him on Farxiga. It is of note that the patient does have history of SVT/NSVT. Does have history of nonischemic cardiomyopathy and systolic heart failure. Does have BiV-ICD (Biotronik) from before. Previously was on sotalol for repeated NSVTs. While being evaluated emergency room, the patient was found to be hypotensive with worsened kidney function. His troponin was also elevated. He has been started on Levophed. It is of note that the patient does have chronically elevated troponin which was previously assessed to reflect demand physiology in the patient with systolic heart failure. He has previously been assessed to have type 2 pulmonary hypertension. His history includes methamphetamine/cannabinoid abuse (he mentions use of amphetamine around a week prior to presentation). Positive JVD. Mucosa is pink and wet. No carotid bruit. No goiter. Scattered rhonchi and crackles in the lungs is heard. Cardiac: Systolic murmur 3/6 in the apex and left sternal borders heard. Abdomen is soft. Bowel sound is positive. Extremities reveal 2+ edema. Dorsalis pedis is 2+ bilateral. There is no gross lateralized neurologic deficit. Past medical history includes systolic heart failure, nonischemic cardiomyopathy, SVT, NSVT, type 2 pulmonary hypertension, hypertension, chronically elevated troponin (troponin was 680 -700 in January 2024/[facility]), kidney stones, hyperlipidemia, status post BiV-ICD (Biotronik) implantation, peripheral artery disease, diverticular disease, COPD, old history of hepatitis-B, old history of syphilis (as per patient: Patient completed treatment years ago), history of hyperparathyroidism and status post hernia repair. Does have history of methamphetamine/cannabinoid abuse. Echocardiogram of 2018 had reported ejection fraction of less than 20%, severe TR/MR, left ventricular enlargement and severe pulmonary artery hypertension Echocardiogram of January 2025 had reported ejection fraction of less than 20% Echocardiogram of March 2025 (performed in [facility]) reported ejection fraction of 10-15% Left heart catheterization of August 23, 2023 had revealed normal coronaries, nonischemic cardiomyopathy, ejection fraction of 20% and left ventricular end- diastolic pressure of 20 mm Hg WBC: 11.6 - 8.3 - 8.3 - 6.8 Creatinine: 2.58 - 2.38 - 1.72 - 1.59 Potassium: 3.2 - 3.2 - 4.0 - 4.3 Magnesium: 2.0 - 2.1 Troponin (high sensitive): 546 - 581 - 608 - 442 BNP: 2632.34 Digoxin level: 0.44 D-dimer: 0.38 (wnl) Urine tox screen was positive for Opiates and Amphetamine Renal/Bladder Ultrasound revealed: IMPRESSION: 1. No hydronephrosis. 2. Right nephrolithiasis. Chest x-ray revealed: IMPRESSION: Cardiomegaly with pulmonary vascular congestion. Repeat chest xry revealed: IMPRESSION: Cardiomegaly with pulmonary vascular congestion. EKG on arrival revealed wide complex rhythms with area of irregularity questioning AFib versus V-tach Tele reveals sinus rhythm, occasions of ventricular paced rhythm Echocardiogram revealed: Left ventricle: Left ventricle was dilated with significantly reduced systolic function. LVEF was 15%. Diffuse hypokinesis of left ventricle was seen. Increased filling pressures of left ventricle was observed. Right ventricle was dilated. Both atria were dilated. Pacing wire was seen in right-sided chambers. Aortic valve was trileaflet. There was no aortic insufficiency/stenosis. There was [id number] mitral regurgitation. There was mild tricuspid regurgitation. Pulmonary valve did not reveal any insufficiency. Right ventricle systolic pressure was assessed at 50 mm Hg. There was no pericardial effusion. IVC was normal-sized with reduced respiratory variation. Dropost.it Bi V ICD interrogation: Battery status: Middle of service (MOS2); Remaining battery capacity: 15%; Battery: Approximately 1 year to replacement; DDD-CLS/BiV: 65/130; Sensing amplitude: A1.3/RV15.4/LV24.4 mV; Pacing impedance: A668/RV495/LV437 Ohms; Shock impedance: RV 84 Ohms; Pacing a/RV/BALING PRESS OPERATOR: 54/94/96%; Atrial burden: 5.6%; Had atrial fibrillation with rapid response beginning at midnight of June 07, 2025; Normal function Patient is a 60-year-old gentleman with history of advanced nonischemic cardiomyopathy/systolic heart failure who presented with generalized weakness, hypotension and generalized body pain. Did have some chest pains. Troponin has been flat and somehow elevated. Does have old history of abnormal/elevated troponin. Has previously been evaluated to have chronically elevated troponin secondary to demand physiology in a patient with nonischemic cardiomyopathy. Had normal coronaries in August 2023. ACS is not considered at this point. Does have history of substance abuse which could have contributed to the clinical picture. His medications have been recently changed and sotalol was stopped. Does have history of NSVT and stopping Sotalol could have contributed to the clinical picture. Is found to have worsened kidney function tests compared to his baseline and SATHISH secondary to hypotension/cardiorenal could be contributing to the clinical picture. Is found to have atrial fibrillation in BiV ICD interrogation. Atrial fibrillation is a new finding for the patient. Recognizing comorbidities, CHADS-VASc score is elevated and long-term full anticoagulation is advised Acute on chronic systolic heart failure Hypotension Abnormal troponin, demand physiology SATHISH Nonischemic cardiomyopathy Systolic heart failure Methamphetamine abuse History of peripheral artery disease History of hyperparathyroidism Type 2 pulmonary hypertension Proteinuria New onset AFib Cardiac suggestion for management: Manage in Tele Follow-up electrolytes and kidney function tests and correct abnormalities PO Amiodarone IV lasix Atrial fibrillation is a new finding for the patient. Recognizing comorbidities, CHADS-VASc score is elevated and long-term full anticoagulation is advised. You can consider Eliquis Nephrology follow up Further evaluation and management depends on the above and clinical course A total of 75 minutes was spent reviewing the patient record, examining the patient, making a diagnostic and therapeutic plan, discussing this plan with medical personnel, following up on diagnostic studies and following the patient for clinical stability excluding any and all procedures. At least 50% of this time was spent in direct, [id number] contact. Thank you for allowing me to participate in this patient's care. Further recommendations will depend on patient's clinical course. Please do not hesitate to contact me if you have any questions or concerns. This medical document was created using electronic medical record system with [employer] computerized dictation system. Although this document has been carefully reviewed, there may still be some phonetic and typographical errors. These areas are purely typographical due to the imperfection of the software programs, and do not reflect any compromise in the patient's medical care. Plan discussed with: Patient, Other (nurse) SHONDA WALSH MD Jun 11, 2025 06:23
--- NOTE | 2025-06-11 08:18 | ECG ---
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
[2025-06-11 09:20] LABS: Hematocrit 38.4 % (41.0-53.0); Hemoglobin 13.2 g/dL (13.5-17.5); Mean Corpuscular Hemoglobin 31.1 pg (28.0-32.0); Mean Corpuscular Volume 90.6 fL (80.0-100.0); Nucleated Red Blood Cells % 0.9 %
[2025-06-11] MEDS: LORazepam 0.5 MG TAB PO PRN (09:41)
[2025-06-11 09:48] LABS: Alanine Aminotransferase 35 U/L (7-40); Albumin 4.1 g/dL (3.2-4.8); Alkaline Phosphatase 91 U/L (46-116); Anion Gap 10 (5-15); BUN/Creatinine Ratio 12.9 (10.0-20.0); Blood Urea Nitrogen 22 mg/dL (9-23); Calcium 9.0 mg/dL (8.7-10.4); Carbon Dioxide 26 mmol/L (20-31); Chloride 102 mmol/L (98-107); Magnesium 1.7 mg/dL (1.6-2.6); Potassium 4.0 mmol/L (3.5-5.1); Sodium 138 mmol/L (136-145); Total Protein 7.1 g/dL (5.7-8.2)
[2025-06-11 09:49] LABS: Bilirubin, Total 0.6 mg/dL (0.2-1.0)
[2025-06-11 09:56] LABS: Glucose 142 mg/dL (74-106)
--- NOTE | 2025-06-11 10:00 | DVHPN2 ---
Subjective He is still complaining of shortness of breaths Oxygen saturation is 94% on room air Reviewed: Care Plan, H&P, Labs, Medications, Previous Orders, Radiology, Other (Consultations) Changes from previous H/P or p: Changes Gastrointestinal: Nausea Objective Vitals Vital Signs Date Time Temp Pulse Resp B/P (MAP) Pulse Ox O2 Delivery O2 Flow Rate FiO2 06/11/25 09:42 64 107/83 06/11/25 06:26 18 06/11/25 05:36 100 06/11/25 05:26 Nasal Cannula* 5 40 06/11/25 05:00 98.9 98.9 Intake/Output Intake and Output 06/11/25 06:59 Intake Total 850 ml Output Total 620 ml Balance 230 ml Intake Oral 850 ml Output Urine Total 620 ml General Appearance: Alert, Oriented X3, Cooperative, mild distress HEENT: Atraumatic Lungs: Clear to auscultation, Normal air movement Cardiovascular: Other (Irregularly irregular rhythm; ICD in place) Abdomen: Normal bowel sounds, Soft, No tenderness Extremities: Other (Pitting edema) Neuro: Normal speech, Cranial nerves 3-12 NL Psych/Mental Status: Mental status NL, Mood NL Medications Current Medications Medications Dose Ordered Sig/Yoni Route Start Time Stop Time Status Last Admin Dose Admin Acetaminophen 650 mg Q6HP PRN PO 06/07/25 17:00 06/09/25 23:12 650 MG Nitroglycerin 0.4 mg Q5MINP PRN SL 06/07/25 17:00 Hold Morphine Sulfate 2 mg Q30M PRN IV 06/07/25 17:00 06/11/25 05:56 2 MG Digoxin 0.125 mg DAILY PO 06/08/25 10:00 06/11/25 09:42 0.125 MG Topiramate 100 mg HS PO 06/07/25 18:00 06/10/25 23:07 100 MG Potassium Chloride 10 meq DAILY PO 06/08/25 10:00 06/11/25 09:42 10 MEQ Atorvastatin Calcium 20 mg HS PO 06/07/25 22:00 06/10/25 23:07 20 MG Diphenhydramine HCl 25 mg Q4HP PRN IV 06/07/25 22:30 06/07/25 22:46 25 MG Carvedilol 12.5 mg BID PO 06/08/25 10:00 06/11/25 09:42 12.5 MG Morphine Sulfate 2 mg Q4HPRN PRN IV 06/08/25 15:30 06/10/25 23:02 2 MG Acetaminophen/ Hydrocodone Bitart 1 tab Q6HP PRN PO 06/08/25 15:30 06/11/25 04:44 1 TAB Amiodarone HCl 200 mg BID PO 06/09/25 10:15 06/11/25 09:42 200 MG Apixaban 5 mg BID PO 06/10/25 10:00 06/11/25 09:41 5 MG Lorazepam 0.5 mg Q4HP PRN PO 06/10/25 14:45 06/11/25 09:41 0.5 MG Furosemide 40 mg BIDD IV 06/10/25 20:15 06/11/25 05:15 40 MG Laboratory Results Laboratory Tests 06/11/25 08:15 Chemistry Test 06/11/25 08:15 Albumin Pending Calcium Level Pending Magnesium Level Pending Total Protein Pending Cardiac Markers Test 06/10/25 15:23 B-Type Natriuretic Peptide 2632.34 pg/mL (0-100) LFT Test 06/11/25 08:15 Alanine Aminotransferase (ALT) Pending Alkaline Phosphatase Pending Aspartate Amino Transferase (AST) Pending Total Bilirubin Pending Urinalysis Test 06/08/25 16:42 06/10/25 23:33 Urine Creatinine 88.19 mg/dL (30.0-125.0) Urine Protein/Creatinine Ratio 0.31 Urine Sodium 14 mmol/L (40-220) L Urine Total Protein 27.5 mg/dL (1-14) H Urine Color Light-yellow (Yellow) Urine Clarity Clear (Clear) Urine pH 6.0 (5.0-9.0) Urine Specific [place] 1.021 (1.001-1.035) Urine Protein Trace (Negative) H Urine Ketones Negative (Negative) Urine Blood Negative /uL (Negative) Urine Nitrite Negative (Negative) Urine Bilirubin Negative (Negative) Urine Urobilinogen Normal mg/dL (Negative) Urine Leukocyte Esterase Negative /uL (Negative) Urine RBC 1 /hpf (0 - 3) Urine Microscopic WBC < 1 /HPF (0-3) Urine Squamous Epithelial Cells None seen /hpf (<5) Urine Bacteria None seen /hpf (None Seen) Urine Glucose 1+ mg/dL (Normal) H Assessment/Plan Assessment/Plan Acute on chronic hypoxic respiratory failure Acute hypoxic respiratory failure due to CHF Nonischemic cardiomyopathy Atrial fibrillation , new onset Acute kidney injury superimposed on chronic kidney disease secondary to hemodynamic mediated Acute systolic heart failure superimposed on chronic systolic heart failure Methamphetamine use NSTEMI Hypokalemia Abnormal troponin due to demand physiology Peripheral arterial disease Proteinuria Plan Maintain fluid restriction 1.5 L a day IV Lasix 40 mg twice a day Cardiology is following Nephrology is following P.o. amiodarone 200 mg twice a day Eliquis 5 mg twice a day Lipitor Coreg Digoxin Sotalol Topamax Monitor closely Full code The rest of the management will depend on the hospital course Plan discussed with: Patient My Orders Orders - MCKENNA SOLANO MD Procedure Category Date Status Time Maintain Fluid JESICA 06/11/25 Transmitted Restrictions 09:45 Date of Service: Jun 11, 2025 Billing Provider: MCKENNA SOLANO MD Common Visit Codes: [id number] INP/OBS CARE(HIGH) MCKENNA SOLANO MD Jun 11, 2025 10:00
--- NOTE | 2025-06-12 07:41 | ECG ---
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
== END 2025-06-11 14:15 | disposition left against medical advice (07) | DRG 280 ==
LOC: ER 08:23 → OVERFLOW 16:53 → TELE-CENTR 06-10 10:57
PROVIDERS: ADMIT Internal Medicine Geriatric Medicine; ATTEND Internal Medicine Geriatric Medicine
PROC: 4B02XTZ Measurement of Cardiac Defibrillator, External Approach (ICD-10-PCS; principal; 2025-06-09)
DX: I13.0 Hypertensive heart and chronic kidney disease with heart failure and stage 1 through stage 4 chronic kidney disease, or unspecified chronic kidney disease (principal); I50.23 Acute on chronic systolic (congestive) heart failure; I21.A1 Myocardial infarction type 2; R57.0 Cardiogenic shock; N17.0 Acute kidney failure with tubular necrosis; J96.21 Acute and chronic respiratory failure with hypoxia; I47.10 Supraventricular tachycardia, unspecified; I27.21 Secondary pulmonary arterial hypertension; I73.9 Peripheral vascular disease, unspecified; I42.8 Other cardiomyopathies; E87.6 Hypokalemia; N18.31 Chronic kidney disease, stage 3a; J44.9 Chronic obstructive pulmonary disease, unspecified; I34.0 Nonrheumatic mitral (valve) insufficiency; Z20.822 Contact with and (suspected) exposure to COVID-19; I07.1 Rheumatic tricuspid insufficiency; F15.10 Other stimulant abuse, uncomplicated; F12.10 Cannabis abuse, uncomplicated; I48.91 Unspecified atrial fibrillation; Z53.29 Procedure and treatment not carried out because of patient's decision for other reasons; E78.5 Hyperlipidemia, unspecified; G43.709 Chronic migraine without aura, not intractable, without status migrainosus; N20.0 Calculus of kidney; F41.9 Anxiety disorder, unspecified; E21.0 Primary hyperparathyroidism; D72.829 Elevated white blood cell count, unspecified; Z72.0 Tobacco use; R80.9 Proteinuria, unspecified; Z79.899 Other long term (current) drug therapy; Z95.810 Presence of automatic (implantable) cardiac defibrillator; Z88.5 Allergy status to narcotic agent; Z86.39 Personal history of other endocrine, nutritional and metabolic disease; Z87.442 Personal history of urinary calculi; Z45.02 Encounter for adjustment and management of automatic implantable cardiac defibrillator
CPT/HCPCS: 36415; 71045; 76775; 80048; 80053; 80162; 80307; 81001; 82306; 82570; 83605; 83735; 83880; 83970; 84156; 84300; 84484; 85025; 85379; 85610; 85730; 87426; 93005; 93306; 94640; 96361; 96372; 96374; 99291; G0378; J2003; J2405